=== PATIENT | female | born 1955 | race Caucasian/White ===

== ENCOUNTER 2018-03-07 17:19 | Emergency (ER) | payer BC ==
[2018-03-07 18:27] VITALS: BP 110/54
--- NOTE | 2018-03-07 19:03 | ED ---
GI/ HPI - HPI Summary HPI Summary: 63-year-old male presents with abdominal pain for the past 2 days. She states the pain is intermittent. He is located suprapubic and left lower quadrant. She has history c difficle 2 years ago. She does not currently on any antibiotics. She presents constipation. She does MiraLAX today and had a bowel movement for some relief afterwards. She describes the pain is spasm. She was occasional nausea but denies any vomiting. She denies any previous surgeries. She has been able to keep food down. She denies any pain with urination. No flank pain. No blood in her stool urine or abnormal vaginal discharge. She denies any history of diverticulitis. - History of Current Complaint Hx Last Menstrual Period: menopuasal Pain Intensity: 4 <Love Casiano - Last Filed: 03/07/18 19:53> <Chente Espinal - Last Filed: 03/07/18 21:02> - History of Current Complaint Chief Complaint: UCAbdominalPain Time Seen by Provider: 03/07/18 18:54 Stated Complaint: ABD PAIN - Allergy/Home Medications Allergies/Adverse Reactions: Allergies Allergy/AdvReac Type Severity Reaction Status Date / Time atorvastatin [From Lipitor] Allergy Leg Cramps Verified 03/07/18 18:28 codeine Allergy Nausea Verified 03/07/18 18:27 metronidazole [From Flagyl] Allergy GI Upset Verified 03/07/18 18:28 Home Medications: Home Medications Aspirin 81 mg PO 03/07/18 [History] Diazepam TAB(*) [Valium TAB(*)] PRN 03/07/18 [History] Ibuprofen [Motrin Ib] 400 mg PO 03/07/18 [History] Levothyroxine TAB* [Synthroid 75 MCG TAB*] 03/07/18 [History] Metoprolol Tartrate 03/07/18 [History] PMH/Surg Hx/FS Hx/Imm Hx Endocrine/Hematology History: Reports: Hx Thyroid Disease - controlled with meds - Cancer History Hx Chemotherapy: No Hx Radiation Therapy: No - Surgical History Surgery Procedure, Year, and Place: 1997-partial hysterectomy Infectious Disease History: Yes Infectious Disease History: Denies: Traveled Outside the [place] in Last 30 Days - Family History Known Family History: Positive: Hypertension - Social History Alcohol Use: Occasionally Substance Use Type: Reports: None Smoking Status (MU): Light Every Day Tobacco Smoker <Love Casiano - Last Filed: 03/07/18 19:53> Review of Systems Negative: Fever Negative: Chest Pain Negative: Shortness Of Breath Positive: Abdominal Pain, Nausea, Other - constipation. Negative: Vomiting, Diarrhea All Other Systems Reviewed And Are Negative: Yes <Love Casiano - Last Filed: 03/07/18 19:53> Physical Exam Triage Information Reviewed: Yes Vital Signs On Initial Exam: Initial Vitals Temp Pulse Resp BP Pulse Ox 98.7 F 59 16 110/54 100 03/07/18 18:19 03/07/18 18:19 03/07/18 18:19 03/07/18 18:19 03/07/18 18:19 Vital Signs Reviewed: Yes Appearance: Positive: Well-Appearing Skin: Positive: Warm, Dry Head/Face: Positive: Normal Head/Face Inspection Eyes: Positive: Normal, EOMI, ANNY, Conjunctiva Clear ENT: Positive: Normal ENT inspection, Pharynx normal, TMs normal Respiratory/Lung Sounds: Positive: Clear to Auscultation, Breath Sounds Present Cardiovascular: Positive: Normal, RRR Abdomen Description: Positive: Nontender, Soft Bowel Sounds: Positive: Present Musculoskeletal: Positive: Normal Neurological: Positive: Normal Psychiatric: Positive: Normal <Love Casiano - Last Filed: 03/07/18 19:53> Vital Signs On Initial Exam: Initial Vitals Temp Pulse Resp BP Pulse Ox 98.7 F 59 16 110/54 100 03/07/18 18:19 03/07/18 18:19 03/07/18 18:19 03/07/18 18:19 03/07/18 18:19 <Chente Espinal L - Last Filed: 03/07/18 21:02> Diagnostics - Vital Signs Vital Signs Temp Pulse Resp BP Pulse Ox 03/07/18 18:19 98.7 F 59 16 110/54 100 - Radiology abd Xray Interpretation: No Acute Changes Radiology Interpretation Completed By: Radiologist <StephenieLove - Last Filed: 03/07/18 19:53> - Vital Signs Vital Signs Temp Pulse Resp BP Pulse Ox 03/07/18 18:19 98.7 F 59 16 110/54 100 <Chente Espinal - Last Filed: 03/07/18 21:02> GIGU Course/Dx - Course Course Of Treatment: 63-year-old male presents with abdominal pain for the past 2 days. She states the pain is intermittent. He is located suprapubic and left lower quadrant. She has history c difficle 2 years ago. She does not currently on any antibiotics. She presents constipation. She does MiraLAX today and had a bowel movement for some relief afterwards. She describes the pain is spasm. She was occasional nausea but denies any vomiting. She denies any previous surgeries. She has been able to keep food down. She denies any pain with urination. No flank pain. No blood in her stool urine or abnormal vaginal discharge. She denies any history of diverticulitis. on exam nontender abdomen. explained that likely due to constipation but can no due any further testing than xray and urine. xray shows stool. patient did not want to give urine and did not want to wait for official read xray. patient has colace at home. told if anything changes to follow up in ED. patient understand and agrees with plan. - Diagnoses Differential Diagnoses - Female: Constipation, Diverticulitis, Urinary Tract Infection <Love Casiano - Last Filed: 03/07/18 19:53> <Chente Espinal - Last Filed: 03/07/18 21:02> - Diagnoses Provider Diagnoses: Abdominal pain Discharge - Sign-Out/Discharge Documenting (check all that apply): Discharge/Admit/Transfer - Billing Disposition and Condition Condition: GOOD Disposition: Home <Love Casiano - Last Filed: 03/07/18 19:53> - Billing Disposition and Condition Condition: GOOD Disposition: Home <Chente Espinal - Last Filed: 03/07/18 21:02> - Discharge Plan Condition: Good Disposition: HOME Patient Education Materials: Abdominal Pain (ED) Forms: *Gen. Provider Communication Referrals: Lucila Hastings MD [Primary Care Provider] - Additional Instructions: Take Tylenol every 6 hours as needed for pain increase fiber Take miralax daily add on colace daily Follow up with primary within 5 days Go to ED if pain becomes severe or continues to persist or any new or worsening symptoms Per institutional requirements, I have reviewed the chart, however, I was not consulted specifically or made aware of this patient by the above midlevel provider. I did not personally evaluate, interact with , or disposition this patient.
--- NOTE | 2018-03-07 19:45 | RAD ---
INDICATION: Lower abdominal pain and constipation. COMPARISON: Comparison is made with a prior CT of the abdomen and pelvis from January 05, 2011. TECHNIQUE: Supine and upright views of the abdomen were obtained. FINDINGS: The small bowel and colon appear nondistended. No free intraperitoneal air is seen. There is a vyto-tb-frlhrvtk of retained stool. There is a calcific density which projects over the pelvis on the right side which appears unchanged from prior CT study most consistent with a phlebolith. IMPRESSION: NO EVIDENCE FOR OBSTRUCTION.
== END 2018-03-07 19:20 | disposition home or self-care (01) ==
LOC: UCEAST 17:19
DX: R10.32 Left lower quadrant pain (principal); K59.00 Constipation, unspecified; R11.0 Nausea; E07.9 Disorder of thyroid, unspecified; F17.290 Nicotine dependence, other tobacco product, uncomplicated; Z88.5 Allergy status to narcotic agent; Z88.8 Allergy status to other drugs, medicaments and biological substances; Z88.1 Allergy status to other antibiotic agents; Z79.82 Long term (current) use of aspirin
CPT/HCPCS: 74019; 99211; G0463

== ENCOUNTER 2018-04-28 09:35 | Emergency (ER) | payer SELFPAY ==
--- OUTSIDE RECORDS SUMMARY | 2018-04-28 09:40 | XMS REPORT ---
:1955 External Reference #:[id number] Author Organization [facility] Address [address] [place] [address] Phone [phone] Care Team Providers Name Role Phone Lucila Hastings M.D. Primary Care Physician Unavailable Payers Type Date Identification Numbers Payment Provider Subscriber Commercial Policy Number: [id number] [facility] Rosita Mahmood PayID: [id number] [address] [address] [place] [address] Problems Date Description Provider Status Onset: Hypothyroidism Active Onset: Hypercholesterolemia Active Onset: 01/03/2016 Vitreous degeneration Shanon Castro O.D. Active Onset: 01/03/2016 Nuclear senile cataract Shanon Castro O.D. Active Family History Date Family Member(s) Problem(s) Comments Father No Current Problems Mother No Current Problems Social History Type Date Description Comments Marital Status Single Occupation [employer] Status Full-Time Employment ETOH Use Occasionally consumes alcohol Smoking Patient is a current smoker, smokes every day 2-3 cig Recreational Drug Use Denies Drug Use Daily Caffeine Consumes on average 1 cup of regular coffee per day Allergies, Adverse Reactions, Alerts Date Description Reaction Status Severity Comments 01/03/2016 Flagyl active 01/03/2016 Ceclor active 01/03/2016 Lipitor active Medications Medication Date Status Form Strength Qnty SIG Indications Ordering Provider Systane Active Solution 0.4-0.3% three Shanon Thrasher Preservative 016 times a Matthew, Free day O.D. Diazepam Active Tablets 2mg Unknown 000 Metoprolol Active Tablets 25mg Unknown Tartrate 000 Levothyroxine Active Tablets 88mcg Unknown Sodium [address] 81mg Unknown 000 Vancomycin HCL Hx Capsules 125mg four Unknown 000 - times a day 015 Results Description No Information Procedures Date CPT Code Description Status 02/28/2017 82867 Determination Of Refractive State Completed 02/28/2017 57458 Est Patient Comprehensive Exam Completed 05/15/2016 78902 Est Patient Comprehensive Exam Completed 01/03/2016 90427 New Patient Comprehensive Exam Completed 12/18/2012 30982 Determination Of Refractive State Completed 12/18/2012 09871 Est Patient Comprehensive Exam Completed 11/03/2011 10765 Est Patient Comprehensive Exam Completed 07/14/2009 68218 Est Patient Comprehensive Exam Completed 01/24/2008 21696 Determination Of Refractive State Completed 01/24/2008 20573 Est Patient Comprehensive Exam Completed 04/04/2007 07719 Determination Of Refractive State Completed 04/04/2007 64441 Est Patient Comprehensive Exam Completed 09/30/2004 62951 Determination Of Refractive State Completed 09/30/2004 28445 Est Patient Comprehensive Exam Completed Encounters Type Date Location Provider CPT E/M Dx Office Visit 02/28/2016 Bruce Whatley MD, Shanon Castro, [id number] [id number] 3:10p Rachael H25.13 Plan of Care 04/08/2018 - Shanon Castro O.D.H25.13 Age-related nuclear cataract, bilateralComments:Smoking can increase the risk of developing or worsening any eye related disease, as well as affect your overall health. If you are a smoker , we strongly recommend that you quit.If you are not a smoker, we strongly recommend that you do not start. You have been diagnosed with cataracts. If you are happy with your vision as it is now, then we will see you at your next scheduled appointment. If you feel like your vision is getting worse before your scheduled appointment, please call Isabella Anderson at [phone].Follow up:1 Year Follow Up You can expect to have your eyes dilated at your next visit. If Dr. Castro orders any additional testing, it may require extra time. We recommend that you bring sunglasses, as dilation drops often make you light sensitive until they wear off. We always recommend you bring someone to drive you home if you are uncomfortable driving with your eyes dilated. If you have any questions before your next visit, feel free to call our office at .[phone] Vitreous degeneration, bilateralComments: You have a Posterior Vitreous Detachment. If you have any changes in your floaters or flashing lights, please contact this office.
[2018-04-28 09:48] VITALS: BP 138/80
--- NOTE | 2018-04-28 11:00 | UC ---
Head Injury HPI - HPI Summary HPI Summary: States this morning she was walking with a baseball cap and could not see a beam , which she walked into and got a big goose egg bruise on forehead. She denies any dizziness, visual disturbances, imbalance or nausea/vomiting. She states she did not fall after colliding with beam and did not loose consciousness. She c/o band-like headache along temples and is taking ASA for paroxysmal Afib . She also took ibuprofen yesterday. - History Of Current Complaint Chief Complaint: UCHeadInjury Stated Complaint: HEAD INJURY Time Seen by Provider: 04/28/18 10:41 Hx Obtained From: Patient Hx Last Menstrual Period: menopuasal ?: No Onset/Duration: Sudden Onset, Lasting Hours Severity Currently: Moderate Severity Initially: Moderate Pain Intensity: 4 Character: Dull Aggravating Factor(s): Nothing Alleviating Factor(s): Nothing Associated Signs And Symptoms: Positive: Other - headache Anticoagulant Therapy: ASA Head: 1 - hematoma approximately 4.5 inches x2.5inches - Risk Factors SDH Risk Factor: Anticoagulent Use - Allergies/Home Medications Allergies/Adverse Reactions: Allergies Allergy/AdvReac Type Severity Reaction Status Date / Time atorvastatin [From Lipitor] Allergy Leg Cramps Verified 04/28/18 09:48 codeine Allergy Nausea Verified 04/28/18 09:48 metronidazole [From Flagyl] Allergy GI Upset Verified 04/28/18 09:48 PMH/Surg Hx/FS Hx/Imm Hx Previously Healthy: Yes Endocrine History: Hypothyroidism Cardiovascular History: Atrial Fibrillation - Surgical History Surgical History: Yes Surgery Procedure, Year, and Place: 1997-partial hysterectomy - Family History Known Family History: Positive: Hypertension - Social History Alcohol Use: Occasionally Substance Use Type: None Smoking Status (MU): Light Every Day Tobacco Smoker Household Exposure Type: Cigarettes Review of Systems Constitutional: Negative Neurological: Headache All Other Systems Reviewed And Are Negative: Yes Physical Exam Triage Information Reviewed: Yes Appearance: Well-Appearing, No Pain Distress, Well-Nourished Vital Signs: Initial Vital Signs Temp 97.5 F 04/28/18 09:45 Pulse 63 04/28/18 09:45 Resp 16 04/28/18 09:45 BP 138/80 04/28/18 09:45 Pulse Ox 100 04/28/18 09:45 Vital Signs Reviewed: Yes Eyes: Positive: Conjunctiva Clear ENT: Positive: Hearing grossly normal, Pharynx normal, TMs normal Neck: Positive: Supple, Nontender, No Lymphadenopathy Respiratory: Positive: Chest non-tender, Lungs clear, Normal breath sounds, No respiratory distress Cardiovascular: Positive: RRR, No Murmur, Pulses Normal, Brisk Capillary Refill Abdomen Description: Positive: Nontender, No Organomegaly, Soft Neurological: Positive: Alert, Muscle Tone Normal, Other: - CN II to XII grossly intact, sensation and strength symmetrical and intact, normal gait Skin Exam: Normal Head Injury Course/Dx - Course Course Of Treatment: patient with head trauma on ASA and ibuprofen who has headache after trauma, instructed to go [place] [facility] [place] r/o SDH. Patient declined ambulance service and states she wants to drive herself there. - Differential Dx/Diagnosis Provider Diagnoses: Head trauma Discharge - Sign-Out/Discharge Documenting (check all that apply): Patient Departure, Post-Discharge Follow Up - Discharge Plan Condition: Fair Disposition: HOME Patient Education Materials: Concussion (ED) Referrals: Lucila Hastings MD [Primary Care Provider] - Additional Instructions: please go to [facility] [place] - Billing Disposition and Condition Condition: FAIR Disposition: Home
== END 2018-04-28 11:12 | disposition home or self-care (01) ==
LOC: UCEAST 09:35
DX: S09.90XA Unspecified injury of head, initial encounter (principal); S00.83XA Contusion of other part of head, initial encounter; W22.09XA Striking against other stationary object, initial encounter; Y93.01 Activity, walking, marching and hiking; Y92.9 Unspecified place or not applicable; I48.91 Unspecified atrial fibrillation; Z79.82 Long term (current) use of aspirin; Z88.1 Allergy status to other antibiotic agents; Z88.5 Allergy status to narcotic agent; Z88.8 Allergy status to other drugs, medicaments and biological substances; Z82.49 Family history of ischemic heart disease and other diseases of the circulatory system; F17.210 Nicotine dependence, cigarettes, uncomplicated
CPT/HCPCS: 99212; G0463

== ENCOUNTER 2018-04-28 12:47 | Emergency (ER) | payer SELFPAY ==
--- NOTE | 2018-04-28 13:20 | RAD ---
Indication: Head injury. ET of the brain performed without IV contrast. Ventricular structures are midline. No midline shift is noted. The extra-axial spaces are unremarkable. There is no evidence of intracranial mass or hemorrhage. No other high or low density lesions are identified. Mastoid air cells and paranasal sinuses are otherwise unremarkable. IMPRESSION: No intracranial mass or hemorrhage is noted.
[2018-04-28 14:06] VITALS: BP 133/67
--- NOTE | 2018-04-28 14:09 | ED ---
Head Injury - HPI Summary HPI Summary: Patient is a 63-year-old female presenting to the ED from with request for CT scan due to hitting a beam with her head this morning. Endorses a headache behind the eyes and temples. Currently on aspirin for A. fib. Denies any visual changes, nausea, vomiting, photophobia. Denies any LOC. She states she is otherwise feeling well. She is concerned is due to her anticoagulation medication. - History Of Current Complaint Chief Complaint: EDHeadInjury Stated Complaint: HEAD INJURY Time Seen by Provider: 04/28/18 13:04 Hx Obtained From: Patient Hx Last Menstrual Period: menopuasal Mechanism Of Injury: Blunt Trauma Onset/Duration: Started Hours Ago Onset of Pain: Hours Severity Currently: Mild Severity Initially: Mild Pain Intensity: 4 Pain Scale Used: 0-10 Numeric Character: Throbbing Alleviating Factor(s): Rest, Ice Associated Signs And Symptoms: Negative Anticoagulant Therapy: ASA - Risk Factors SDH Risk Factor: Negative - Allergies/Home Medications Allergies/Adverse Reactions: Allergies Allergy/AdvReac Type Severity Reaction Status Date / Time atorvastatin [From Lipitor] Allergy Leg Cramps Verified 04/28/18 09:48 codeine Allergy Nausea Verified 04/28/18 09:48 metronidazole [From Flagyl] Allergy GI Upset Verified 04/28/18 09:48 PMH/Surg Hx/FS Hx/Imm Hx Previously Healthy: Yes Endocrine/Hematology History: Reports: Hx Thyroid Disease - controlled with meds - Cancer History Hx Chemotherapy: No Hx Radiation Therapy: No - Surgical History Surgery Procedure, Year, and Place: 1997-partial hysterectomy - Immunization History Hx Pertussis Vaccination: No Immunizations Up to Date: Unable to Obtain/Confirm Infectious Disease History: No Infectious Disease History: Denies: Traveled Outside the [place] in Last 30 Days - Family History Known Family History: Positive: Hypertension - Social History Occupation: Unemployed Lives: With Family Alcohol Use: Occasionally Hx Substance Use: No Substance Use Type: Reports: None Hx Tobacco Use: Yes Smoking Status (MU): Current Every Day Smoker Review of Systems Constitutional: Negative Negative: Fever, Chills, Fatigue, Skin Diaphoresis Negative: Palpitations, Chest Pain Negative: Shortness Of Breath, Cough Genitourinary: Negative Positive: no symptoms reported, see HPI Positive: Bruising - frontal head Neurological: Negative All Other Systems Reviewed And Are Negative: Yes Physical Exam Triage Information Reviewed: Yes Vital Signs On Initial Exam: Initial Vitals Temp Pulse Resp BP Pulse Ox 97.9 F 72 16 145/68 99 04/28/18 12:49 04/28/18 12:49 04/28/18 12:49 04/28/18 12:49 04/28/18 12:49 Vital Signs Reviewed: Yes Appearance: Positive: Well-Appearing, Well-Nourished Skin: Positive: Warm, Skin Color Reflects Adequate Perfusion, Other - forehead bruising/swelling Eyes: Positive: EOMI, ANNY, Conjunctiva Clear Neck: Positive: Supple, No Lymphadenopathy Respiratory/Lung Sounds: Positive: Clear to Auscultation Cardiovascular: Positive: RRR Musculoskeletal: Positive: Normal, Strength/ROM Intact Neurological: Positive: Sensory/Motor Intact, Speech Normal Psychiatric: Positive: Normal AVPU Assessment: Alert Diagnostics - Vital Signs Vital Signs Temp Pulse Resp BP Pulse Ox 04/28/18 14:05 98.7 F 51 16 133/67 98 04/28/18 12:49 97.9 F 72 16 145/68 99 - Laboratory Lab Statement: Any lab studies that have been ordered have been reviewed, and results considered in the medical decision making process. Head Injury Course/Dx Course Of Treatment: Patient is evaluated for head injury. CT obtained and is negative for any acute changes. She is discharged with head injury. - Diagnoses Differential Diagnosis/HQI/PQRI: Concussion With LOC, Concussion Without LOC, Contusion Provider Diagnoses: Head injury Discharge - Sign-Out/Discharge Documenting (check all that apply): Patient Departure - Discharge Plan Condition: Stable Disposition: HOME Patient Education Materials: Head Injury (ED) Referrals: Lucila Hastings MD [Primary Care Provider] - Additional Instructions: If you develop any worsening symptoms - return to the ED - Billing Disposition and Condition Condition: STABLE Disposition: Home
== END 2018-04-28 14:05 | disposition home or self-care (01) ==
LOC: ED 12:47
DX: S09.90XA Unspecified injury of head, initial encounter (principal); W22.8XXA Striking against or struck by other objects, initial encounter; Y92.9 Unspecified place or not applicable; Y99.9 Unspecified external cause status; I48.91 Unspecified atrial fibrillation; F17.200 Nicotine dependence, unspecified, uncomplicated; Z79.82 Long term (current) use of aspirin; Z88.5 Allergy status to narcotic agent; Z88.8 Allergy status to other drugs, medicaments and biological substances; Z88.3 Allergy status to other anti-infective agents
CPT/HCPCS: 70450; 99281

== ENCOUNTER 2019-04-06 13:59 | Emergency (ER) | payer BC ==
--- OUTSIDE RECORDS SUMMARY | 2019-04-06 14:10 | XMS REPORT | Continuity of Care Document ---
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 /min Body Temperature 98.0 F Height 65 inches 5'5" Weight 153.00 lb BMI (Body Mass Index) 25.5 kg/m2 03/10/2008 10:14am BP Systolic 100 mmHg BP Diastolic 60 mmHg Body Temperature 98.2 F Height 65 inches 5'5" Weight 153.00 lb BMI (Body Mass Index) 25.5 kg/m2 03/04/2008 2:12pm BP Systolic 106 mmHg BP Diastolic 64 mmHg Heart Rate 76 /min Body Temperature 101.1 F Height 65 inches 5'5" Weight 153.00 lb BMI (Body Mass Index) 25.5 kg/m2 02/15/2008 12:42pm BP Systolic 124 mmHg BP Diastolic 64 mmHg Heart Rate 66 /min Body Temperature 98.1 F Height 65 inches 5'5" Weight 154.00 lb BMI (Body Mass Index) 25.6 kg/m2 11/22/2007 4:27pm BP Systolic 112 mmHg BP Diastolic 70 mmHg Heart Rate 72 /min Height 65 inches 5'5" Weight 159.00 lb BMI (Body Mass Index) 26.5 kg/m2 07/24/2007 10:35am BP Systolic 124 mmHg BP Diastolic 72 mmHg Heart Rate 72 /min Body Temperature 97.0 F Height 65 inches 5'5" Weight 158.00 lb BMI (Body Mass Index) 26.3 kg/m2 04/12/2007 12:55pm BP Systolic 130 mmHg BP Diastolic 70 mmHg Heart Rate 72 /min Respiratory Rate 16 /min Height 65 inches 5'5" Weight 154.00 lb BMI (Body Mass Index) 25.6 kg/m2 03/25/2007 1:29pm BP Systolic 118 mmHg BP Diastolic 64 mmHg Heart Rate 76 /min Respiratory Rate 13 /min Height 65 inches 5'5" 06/26/2006 1:12pm BP Systolic 110 mmHg BP Diastolic 70 mmHg Body Temperature 99.3 F Height 65 inches 5'5" Weight 153.00 lb BMI (Body Mass Index) 25.5 kg/m2 03/30/2006 10:08am BP Systolic 124 mmHg BP Diastolic 70 mmHg Body Temperature 100.0 F Height 65 inches 5'5" Weight 152.00 lb BMI (Body Mass Index) 25.3 kg/m2 03/22/2006 5:14pm BP Systolic 122 mmHg BP Diastolic 70 mmHg Heart Rate 72 /min Height 65 inches 5'5" Weight 152.00 lb BMI (Body Mass Index) 25.3 kg/m2 02/18/2006 10:53am BP Systolic 122 mmHg BP Diastolic 80 mmHg Body Temperature 97.0 F Respiratory Rate 20 /min Height 65 inches 5'5" 01/12/2006 9:39am BP Systolic 116 mmHg BP Diastolic 62 mmHg Heart Rate 66 /min Body Temperature 99.0 F Height 65 inches 5'5" Weight 151.00 lb BMI (Body Mass Index) 25.1 kg/m2 10/05/2005 2:07pm BP Systolic 114 mmHg BP Diastolic 70 mmHg Heart Rate 80 /min Body Temperature 98.7 F Height 65 inches 5'5" Weight 157.00 lb BMI (Body Mass Index) 26.1 kg/m2 08/15/2005 9:10am BP Systolic 120 mmHg BP Diastolic 80 mmHg Heart Rate 72 /min Height 65 inches 5'5" Weight 150.00 lb BMI (Body Mass Index) 25.0 kg/m2 12/12/2004 3:57pm BP Systolic 116 mmHg BP Diastolic 60 mmHg Heart Rate 60 /min Height 65 inches 5'5" Weight 148.00 lb BMI (Body Mass Index) 24.6 kg/m2 11/02/2004 9:31am BP Systolic 110 mmHg BP Diastolic 70 mmHg Heart Rate 60 /min Body Temperature 98.9 F Height 66 inches 5'6" Weight 152.00 lb BMI (Body Mass Index) 24.5 kg/m2 08/08/2004 4:07pm BP Systolic 110 mmHg BP Diastolic 80 mmHg Height 66 inches 5'6" Weight 150.00 lb BMI (Body Mass Index) 24.2 kg/m2 01/20/2004 3:12pm BP Systolic 116 mmHg BP Diastolic 70 mmHg Heart Rate 72 /min Height 66 inches 5'6" Weight 148.00 lb BMI (Body Mass Index) 23.9 kg/m2 08/18/2003 9:10am BP Systolic 110 mmHg BP Diastolic 68 mmHg Heart Rate 72 /min Body Temperature 99.8 F Height 66 inches 5'6" Weight 148.00 lb BMI (Body Mass Index) 23.9 kg/m2 11/04/2002 8:04am BP Systolic 120 mmHg BP Diastolic 60 mmHg Heart Rate 72 /min Height 66 inches 5'6" Weight 149.00 lb BMI (Body Mass Index) 24.0 kg/m2 10/09/2002 6:08pm BP Systolic 130 mmHg BP Diastolic 74 mmHg Heart Rate 68 /min Body Temperature 97.8 F Height 66 inches 5'6" Weight 146.00 lb BMI (Body Mass Index) 23.6 kg/m2 08/20/2002 4:33pm BP Systolic 117 mmHg BP Diastolic 68 mmHg Heart Rate 84 /min Height 66 inches 5'6" Weight 150.00 lb BMI (Body Mass Index) 24.2 kg/m2 04/12/2000 8:48pm Body Temperature 97.8 F Height 66 inches 5'6" Weight 144.00 lb BMI (Body Mass Index) 23.2 kg/m2 04/03/2000 6:27pm BP Systolic 114 mmHg BP Diastolic 68 mmHg Height 66 inches 5'6" Weight 143.25 lb BMI (Body Mass Index) 23.1 kg/m2 Right Visual Acuity Distance 20/30 Colors:Green/black Left Visual Acuity Distance 20/20 Corrected 04/18/1999 10:00am BP Systolic 114 mmHg BP Diastolic 70 mmHg Height 66 inches 5'6" Weight 143.00 lb 02/16/1999 11:00am BP Systolic 110 mmHg BP Diastolic 50 mmHg Height 66 inches 5'6" Weight 146.00 lb 12/19/1997 11:13am BP Systolic 122 mmHg BP Diastolic 64 mmHg Height 66 inches 5'6" Weight 135.50 lb 07/15/1997 12:00am Body Temperature 98.9 F Results Test Date Facility Test Result H/L Range Note Laboratory test finding 08/06/2018 [facility] [place] Thyroxine 11.00 ?g/dL N 6.09- 12.23 1 T3 Free 3.40 pg/mL N 2.5-3.9 2 Vitamin D Total 25(Oh) 25.6 ng/mL N 20-50 3 TSH (Thyroid Stim Horm) 0.90 mcIU/mL N 0.34-5.60 4 CBC No Diff 08/06/2018 [facility] [place] White Blood Count 9.3 10^3/uL N 3.5-10.8 Red Blood Count 4.48 10^6/uL N 4.00-5.40 Hemoglobin 14.8 g/dL N 12.0-16.0 Hematocrit 44 % N 35-47 Mean Corpuscular Volume 97 fL N 80-97 Mean Corpuscular Hemoglobin 33 pg High 27-31 Mean Corpuscular HGB Conc 34 g/dL N 31-36 Red Cell Distribution Width 13 % N 10.5-15 Platelet Count 197 10^3/uL N 150-450 Mean Platelet Volume 10.7 fL High 7.4-10.4 Lipid Profile (Trig/Chol/HDL) 08/06/2018 [facility] [place] Triglycerides 178 mg/dL 5 Cholesterol 261 mg/dL 6 HDL Cholesterol 53.1 mg/dL 7 LDL Cholesterol 172 mg/dL 8 Comp Metabolic Panel 08/06/2018 [facility] [place] Sodium 138 mmol/L N 135-145 Potassium 4.4 mmol/L N 3.5-5.0 Chloride 106 mmol/L N 101-111 Co2 Carbon Dioxide 25 mmol/L N 22-32 Anion Gap 7 mmol/L N 2-11 Glucose 96 mg/dL N 70-100 Blood Urea Nitrogen 19 mg/dL N 6-24 Creatinine 0.90 mg/dL N 0.51-0.95 BUN/Creatinine Ratio 21.1 High 8-20 Calcium 9.6 mg/dL N 8.6-10.3 Total Protein 6.7 g/dL N 6.4-8.9 Albumin 4.5 g/dL N 3.2-5.2 Globulin 2.2 g/dL N 2-4 Albumin/Globulin Ratio 2.0 N 1-3 Total Bilirubin 0.50 mg/dL N 0.2-1.0 Alkaline Phosphatase 92 U/L N 34-104 Alt 15 U/L N 7-52 Ast 16 U/L N 13-39 Egfr Non- 63.2 >60 Egfr 76.5 >60 9 Laboratory test finding 12/18/2017 [facility]) TSH 1.93 mIU/L 0.50-6.00 Free T4 1.18 ng/dL 0.75-1.54 Laboratory test 11/05/2017 [facility]) TSH 8.78 mIU/L High 0.50- 6.00 finding Free T4 0.74 ng/dL Low 0.75-1.54 Comprehensive Metabolic 04/19/2017 [facility]) Sodium 140 mEq/L 134-149 Prof Potassium 5.0 mEq/L 3.6-5.5 Chloride 100 mEq/L 94-112 Carbon Dioxide 26 mEq/L 21-32 Glucose 107 mg/dL High 70-105 BUN 16 mg/dL 6-26 Creatinine 0.8 mg/dL 0.6-1.4 BUN/Creat Ratio 20.0 CALC 8.0-36.0 Calcium 9.6 mg/dL 8.6-10.2 Total Protein 7.1 g/dL 6.4-8.3 Albumin 4.8 g/dL 3.8-5.5 Globulin 2.3 g/dL 2.0-4.8 A/G Ratio 2.1 CALC 0.6-2.3 Alk. Phosphatase 72 U/L 30-110 Alt (SGPT) 17 U/L 7-35 Ast (Sgot) 16 U/L 5-34 Total Bilirubin 0.4 mg/dL 0.2-1.3 GFR Non- >60 ml/min/1.73m^ >=60 GFR >60 ml/min/1.73m^ >=60 CBC Auto Diff 09/14/2016 [facility] [place] White Blood Count 9.3 10^3/uL N 3.5-10.8 Red Blood Count 4.91 10^6/uL N 4.0-5.4 Hemoglobin 16.3 g/dL High 12.0-16.0 Hematocrit 48 % High 35-47 Mean Corpuscular Volume 97 fL N 80-97 Mean Corpuscular Hemoglobin 33 pg High 27-31 Mean Corpuscular HGB Conc 34 g/dL N 31-36 Red Cell Distribution Width 13 % N 10.5-15 Platelet Count 215 10^3/uL N 150-450 Mean Platelet Volume 11 um3 High 7.4-10.4 Abs Neutrophils 5.6 10^3/uL N 1.5-7.7 Abs Lymphocytes 2.6 10^3/uL N 1.0-4.8 Abs Monocytes 0.7 10^3/uL N 0-0.8 Abs Eosinophils 0.2 10^3/uL N 0-0.6 Abs Basophils 0.1 10^3/uL N 0-0.2 Abs Nucleated RBC 0 10^3/uL N Granulocyte % 60.9 % N 38-83 Lymphocyte % 27.9 % N 25-47 Monocyte % 8.1 % N 1-9 Eosinophil % 1.8 % N 0-6 Basophil % 1.3 % N 0-2 Nucleated Red Blood Cells % 0 N Comp Metabolic Panel 09/14/2016 [facility] Sodium 135 mmol/L N 133-145 Potassium 4.7 mmol/L N 3.5-5.0 Chloride 103 mmol/L N 101-111 Co2 Carbon Dioxide 24 mmol/L N 22-32 Anion Gap 8 mmol/L N 2-11 Glucose 94 mg/dL N 70-100 Blood Urea Nitrogen 18 mg/dL N 6-24 Creatinine 0.93 mg/dL N 0.51-0.95 BUN/Creatinine Ratio 19.4 N 8-20 Calcium 9.6 mg/dL N 8.6-10.3 Total Protein 7.2 g/dL N 6.4-8.9 Albumin 4.5 g/dL N 3.2-5.2 Globulin 2.7 g/dL N 2-4 Albumin/Globulin Ratio 1.7 N 1-3 Total Bilirubin 0.50 mg/dL N 0.2-1.0 Alkaline Phosphatase 75 U/L N 34-104 Alt 15 U/L N 7-52 Ast 17 U/L N 13-39 Egfr Non- 61.3 N >60 Egfr 78.8 N >60 10 Lipid Profile (Trig/Chol/HDL) 09/14/2016 [facility] [place] Triglycerides 202 mg/dL N 11 Cholesterol 290 mg/dL N 12 HDL Cholesterol 48.7 mg/dL N 13 LDL Cholesterol 201 mg/dL N 14 Laboratory test finding 09/14/2016 [facility] [place] TSH (Thyroid Stim 2.91 mcIU/mL N 0.34-5.60 Horm) Free T4 (Free Thyroxine) 1.02 ng/dL N 0.61-1.12 Ferritin 130.3 ng/mL N 11-307 Vitamin D Total 25(Oh) 31.2 ng/mL N 30-50 Complete Blood Count 03/17/2016 [facility]) WBC 6.3 x10^3/UL 3.6 -9.6 RBC 4.28 x10^6/UL 3.90-5.70 HGB 14.4 g/dL 12.1-17.2 HCT 42 % 36-50 MCV 99.0 fL High 82.2-97.4 15 MCH 33.6 pg High 27.6-33.3 16 MCHC 34.0 g/dL 33.0-35.5 RDW 13.1 % 11.6-13.7 PLT 261 x10^3/UL 150-400 MPV 8.6 fL 7.4-10.4 Gran # 3.6 x10^3/UL 1.5-7.2 Lymph# 2.5 x10^3/UL 0.7-4.9 [place]# 0.2 x10^3/UL 0.1-0.9 Gran % 55.3 % 42.2-75.2 Lymph % 40.4 % 20.5-51.1 [place]% 4.3 % 1.7-9.3 Laboratory test 02/25/2016 [facility] [place] Stool Occult SEE RESULT BELOW 17 finding Blood Laboratory test 02/25/2016 [facility] [place] Lactic Acid 1.0 mmol/L N 0.5-2.0 18 finding CBC Auto Diff 02/25/2016 [facility] [place] White Blood Count 7.6 10^3/uL N 3.5-10.8 Red Blood Count 4.43 10^6/uL N 4.0-5.4 Hemoglobin 14.6 g/dL N 12.0-16.0 Hematocrit 43 % N 35-47 Mean Corpuscular Volume 97 fL N 80-97 Mean Corpuscular Hemoglobin 33 pg High 27-31 Mean Corpuscular HGB Conc 34 g/dL N 31-36 Red Cell Distribution Width 12 % N 10.5-15 Platelet Count 144 10^3/uL Low 150-450 Mean Platelet Volume 11 um3 High 7.4-10.4 Abs Neutrophils 6.1 10^3/uL N 1.5-7.7 Abs Lymphocytes 0.6 10^3/uL Low 1.0-4.8 Abs Monocytes 0.9 10^3/uL High 0-0.8 Abs Eosinophils 0 10^3/uL N 0-0.6 Abs Basophils 0 10^3/uL N 0-0.2 Abs Nucleated RBC 0 10^3/uL N Granulocyte % 80.2 % N 38-83 Lymphocyte % 7.6 % Low 25-47 Monocyte % 11.7 % High 1-9 Eosinophil % 0.2 % N 0-6 Basophil % 0.3 % N 0-2 Nucleated Red Blood Cells % 0 N Comp Metabolic Panel 02/25/2016 [facility] Sodium 128 mmol/L Low 133-145 Potassium 3.6 mmol/L N 3.5-5.0 Chloride 99 mmol/L Low 101-111 Co2 Carbon Dioxide 19 mmol/L Low 22-32 Anion Gap 10 mmol/L N 2-11 Glucose 138 mg/dL High 70-100 Blood Urea Nitrogen 15 mg/dL N 6-24 Creatinine 0.83 mg/dL N 0.51-0.95 BUN/Creatinine Ratio 18.1 N 8-20 Calcium 8.8 mg/dL N 8.6-10.3 Total Protein 6.6 g/dL N 6.4-8.9 Albumin 3.7 g/dL N 3.2-5.2 Globulin 2.9 g/dL N 2-4 Albumin/Globulin Ratio 1.3 N 1-3 Total Bilirubin 0.50 mg/dL N 0.2-1.0 Alkaline Phosphatase 55 U/L N 34-104 Alt 19 U/L N 7-52 Ast 21 U/L N 13-39 Egfr Non- 69.9 N >60 Egfr 89.9 N >60 19 Laboratory test finding 02/25/2016 [facility] Lipase 11 U/L N 11.0-82.0 C Reactive Protein 144.74 mg/L High < 5.00 20 Urinalysis Profile 02/25/2016 [facility] [place] Urine Color Yellow N Urine Appearance Cloudy N Urine Specific [place] 1.023 N 1.010-1.030 Urine pH 5.0 N 5-9 Urine Urobilinogen Negative N Negative Urine Ketones Trace Abnormal Negative Urine Protein 1+(30 mg/dL) Abnormal Negative Urine Leukocytes Negative N Negative Urine Blood 1+ Abnormal Negative Urine Nitrite Negative N Negative Urine Bilirubin Negative N Negative Urine Glucose Negative N Negative Urine White Blood Cell Trace(0-5/hpf) N Absent Urine Red Blood Cell 1+(3-5/hpf) Abnormal Absent Urine Bacteria Absent N Absent Urine Squamous Epithelial Cell Present Abnormal Absent Comprehensive Metabolic 12/02/2015 [facility]) Sodium 137 mEq/L 134-149 Prof Potassium 4.3 mEq/L 3.6-5.5 Chloride 103 mEq/L 94-112 Carbon Dioxide 29 mEq/L 21-32 Glucose 107 mg/dL High 70-105 21 BUN 15 mg/dL 6-26 Creatinine 0.8 mg/dL 0.6-1.4 BUN/Creat Ratio 18.8 CALC 8.0-36.0 Calcium 10.2 mg/dL 8.6-10.2 Total Protein 7.5 g/dL 6.4-8.3 Albumin 4.7 g/dL 3.8-5.5 Globulin 2.8 g/dL 2.0-4.8 A/G Ratio 1.7 CALC 0.6-2.3 Alk. Phosphatase 79 U/L 30-110 Alt (SGPT) 18 U/L 7-35 Ast (Sgot) 17 U/L 5-34 Total Bilirubin 0.3 mg/dL 0.2-1.3 GFR Non- >60 ml/min/1.73m^ >=60 GFR >60 ml/min/1.73m^ >=60 Laboratory test finding 12/02/2015 [facility]) TSH 1.84 mIU/L 0.50-6.00 Free T4 1.25 ng/dL 0.75-1.54 Complete Blood Count 12/02/2015 [facility]) WBC 7.8 x10^3/UL 3.6 -9.6 RBC 4.62 x10^6/UL 3.90-5.70 HGB 15.5 g/dL 12.1-17.2 HCT 46 % 36-50 MCV 100.0 fL High 82.2-97.4 22 MCH 33.6 pg High 27.6-33.3 MCHC 33.6 g/dL 33.0-35.5 RDW 12.5 % 11.6-13.7 PLT 231 x10^3/UL 150-400 MPV 9.0 fL 7.4-10.4 Gran # 4.8 x10^3/UL 1.5-7.2 Lymph# 2.8 x10^3/UL 0.7-4.9 [place]# 0.2 x10^3/UL 0.1-0.9 Gran % 59.5 % 42.2-75.2 Lymph % 36.8 % 20.5-51.1 [place]% 3.7 % 1.7-9.3 Lipid Panel-[facility] 03/25/2015 [facility] [place] Triglycerides 105 mg/dL N 23, 24 Cholesterol 239 mg/dL N 25 HDL Cholesterol 41.7 mg/dL N 26 LDL Cholesterol 176 mg/dL N 27 Laboratory test 02/18/2015 [facility] [place] TSH (Thyroid Stim 1.52 ?IU/mL N 0.34-5.60 28, 29 finding Horm) Comp Metabolic-ALL 02/18/2015 [facility] [place] Sodium 137 mmol/L N 133-145 Lab [facility] Potassium 4.2 mmol/L N 3.5-5.0 Chloride 104 mmol/L N 101-111 Co2 Carbon Dioxide 28 mmol/L N 22-32 Anion Gap 5 mmol/L N 2-11 Glucose 94 mg/dL N 70-100 Blood Urea Nitrogen 17 mg/dL N 6-24 Creatinine 0.91 mg/dL N 0.51-0.95 BUN/Creatinine Ratio 18.7 N 8-20 Calcium 9.4 mg/dL N 8.6-10.3 Total Protein 6.4 g/dL N 6.4-8.9 Albumin 4.4 g/dL N 3.2-5.2 Globulin 2.0 g/dL N 2-4 Albumin/Globulin Ratio 2.2 N 1-3 Total Bilirubin 0.50 mg/dL N 0.2-1.0 Alkaline Phosphatase 70 U/L N 34-104 Alt 15 U/L N 7-52 Ast 18 U/L N 13-39 Egfr Non- 63.1 N >60 Egfr 81.1 N >60 30 Liver Function Panel 02/18/2015 [facility] [place] Direct Bilirubin 0.10 mg/dL N 0.03- 0.18 Indirect Bilirubin 0.4 mg/dL N 0.3-1.0 Laboratory test finding 02/18/2015 [facility] [place] Free T4 1.08 ng/mL N 0.61-1.12 31 Laboratory test finding 02/21/2014 [facility] [place] Potassium Redraw 4.2 mmol/L 3.7- 5.6 Ast Redraw 19 U/L 13-39 Laboratory test 02/20/2014 [facility] [place] TSH (Thyroid 3.85 IU/mL 0.34-5.60 32 finding Stimulating Horm) Comp Metabolic-ALL Lab 02/20/2014 [facility] [place] Sodium 135 mmol/L 133-145 [facility] Potassium TNP mmol/L 3.7-5.6 33 Chloride 106 mmol/L 101-111 Co2 Carbon Dioxide 22 mmol/L 22-32 Anion Gap TNP mmol/L 2-11 Glucose 97 mg/dL 70-100 Blood Urea Nitrogen 21 mg/dL 6-24 Creatinine 1.00 mg/dL High 0.51-0.95 BUN/Creatinine Ratio 21.0 High 8-20 Calcium 9.2 mg/dL 8.6-10.3 Total Protein 6.9 g/dL 6.4-8.9 Albumin 4.4 g/dL 3.2-5.2 Globulin 2.5 g/dL 2-4 Albumin/Globulin Ratio 1.8 1-3 Total Bilirubin 0.30 mg/dL 0.2-1.0 Alkaline Phosphatase 87 U/L 34-104 Alt 17 U/L 7-52 Ast TNP U/L 13-39 34 Egfr Non- 56.7 >60 Egfr 73.0 >60 35 Lipid Panel-[facility] 02/20/2014 [facility] [place] Triglycerides 282 mg/dL 36 Cholesterol 248 mg/dL 37 HDL Cholesterol 44.6 mg/dL 38 LDL Cholesterol 147 mg/dL 39 Ua - Non Micro (a) 01/19/2014 [facility] Appearance CLEAR (607)- - Color YELLOW Glucose NEG Bilirubin NEG Ketones NEG SP Grav 1.025 Blood NEG PH 6.0 Protein NEG Urobil 0.2 Nitrite NEG Leukocytes ([facility] [place]/[facility]) NEG Laboratory test 01/15/2013 [facility]) TSH 0.62 mIU/L 0.50-6.00 finding Lipid Profile 01/15/2013 [facility]) Cholesterol 268 mg/dL High 120-200 HDL 45 mg/dL 30-85 Triglycerides 164 mg/dL 30-200 HDL Risk Factor 6.0 CALC High 0.0-4.4 LDL (Calculated) 191 CALC High 0-129 VLDL (Calculated) 33 mg/dL 0-50 Comprehensive Metabolic 01/15/2013 [facility]) Albumin 4.8 g/dL 3.8-5.5 Prof Alk. Phos. 80 U/L 30-110 Alt (SGPT) 19 U/L 7-35 Ast (Sgot) 21 U/L 5-34 BUN 16 mg/dL 6-26 Calcium 9.4 mg/dL 8.6-10.2 Chloride 102 mEq/L 94-112 Creatinine 1.1 mg/dL 0.6-1.4 Carbon Dioxide 21 mEq/L 21-32 Glucose 99 mg/dL 70-105 Sodium 138 mEq/L 134-149 Total Bilirubin 0.6 mg/dL 0.2-1.3 Total Protein 7.0 g/dL 6.3-8.1 Potassium 4.7 mEq/L 3.6-5.5 Globulin 2.2 g/dL 2.0-4.8 A/G Ratio 2.1 Calc 0.6-2.3 BUN/Creat Ratio 14.5 Calc 8.0-36.0 Ua - Non Micro ([facility]) 01/15/2013 [facility] Appearance clear (607)- - Color yellow Glucose - Bilirubin - Ketones - SP Grav 1.020 Blood - PH 7.5 Protein - Urobil 0.2 Nitrite - Leukocytes ([facility]) - Lipid Profile (Trig/Chol/HDL) 06/17/2012 [facility] [place] Triglyceride 162 mg/dL 40- 200 Cholesterol 264 mg/dL High Less Than 200 40 High Density Lipoprotein 43 mg/dL 40-60 41 Cholesterol/HDL Ratio 6.14 AVERAGE High 1-4.44 Low Density Lipoprotein 189 mg/dL High Less Than 100 42 Laboratory test finding 06/17/2012 [facility] [place] TSH 3.15 MIU/ML 0.34-5.60 Laboratory test finding 12/05/2011 [facility] [place] TSH 1.06 MIU/ML 0.34-5.60 Lipid Profile (Trig/Chol/HDL) 10/11/2011 [facility] [place] Triglyceride 88 mg/dL 40- 200 Cholesterol 223 mg/dL High Less Than 200 43 High Density Lipoprotein 50 mg/dL 40-60 44 Cholesterol/HDL Ratio 4.46 AVERAGE High 1-4.44 Low Density Lipoprotein 155 mg/dL High Less Than 100 45 Comp Metabolic Panel 10/11/2011 [facility] [place] Sodium 135 mmol/L 135-145 Potassium 4.5 mmol/L 3.5-5.0 Chloride 101 mmol/L 101-111 Co2 (Carbon Dioxide) 28.0 mmol/L 22-32 Anion Gap 6.0 mmol/L 2-11 46 Glucose 93 mg/dL 70-100 BUN 14 mg/dL 6-24 Creatinine 1.0 mg/dL 0.50-1.40 One Over Creatinine 1.00 BUN/Creatinine Ratio 14.0 8-20 Calcium 9.5 mg/dL 8.1-9.9 Total Protein 6.6 GM/DL 6.2-8.1 Albumin 4.3 GM/DL 3.6-5.4 Globulin 2.3 GM/DL 2-4 Albumin/Globulin Ratio 1.9 1-3 Bilirubin Total 0.6 mg/dL 0.4-1.5 47 Alkaline Phosphatase 85 U/L 30-110 Alt (SGPT) 15 U/L 14-54 Ast (Sgot) 19 U/L 12-42 eGFR Non- 57.4 > 60 eGFR 73.8 > 60 48 Laboratory test finding 10/11/2011 [facility] [place] TSH 7.31 MIU/ML High 0.34-5.60 CBC Auto Diff 10/11/2011 [facility] [place] White Blood Count 7.1 CUMM 4.8-10.8 Red Cell Count 4.29 CUMM 4.2-5.4 Hemoglobin 14.7 g/dL 12.0-16.0 Hematocrit 43 % 35-47 Mean Corpuscular Volume 100 um3 High 79-97 Mean Corpuscular Hemoglob 34 pg High 27-31 Mean Corpuscular HGB Cone 34 g/dL 32-36 Redcell Distribution WDTH 12 % 10.5-15 Platelet Count 194 CUMM 150-450 Mean Platelet Volume 10.7 um3 High 7.4-10.4 Gran % 57.1 % 38-83 Lymph % 30.1 % 25-47 Mononuclear % 8.6 % 1-9 Eosinophil % 3.8 % 0-6 Basophil % 0.4 % 0-2 Abs Lymphs 2.1 1.0-4.8 Abs Mononuclear 0.6 0-0.8 Absolute Neutrophil Count 4.1 1.5-7.7 Abs Eosinophils 0.3 0-0.6 Abs Basophils 0 0-0.2 CBC Electronic ([facility]) 04/04/2011 [facility] WBC 5.8 3.6-9.6 (607)- - RBC 4.65 3.90-5.70 Hemoglobin ([facility]/CTX) 15.8 g/dL 12.1 - 17.2 Hematocrit ([facility]/CTX) 45.8 % 36.1 - 50.3 Platelets 215 10^3/ul 150-400 Lymph% 28.9 20.5-51.1 Mixed% 9.9 Neutrophils % 61.2 Mean Corpuscular Vol 98.5 High 82.2-97.4 Mean Corpuscular Hemoglobin 34.0 High 27.6-33.3 Mean Corpuscular Hemo Concen 34.5 32.0-36.0 RDW 12.3 11.6-13.7 Mean Platelet Volume 13.5 High 6.5-11.0 Comprehensive Metabolic 04/04/2011 [place]([facility]) Albumin 5.0 g/dL 3.8-5.5 Prof Alk. Phos. 79 U/L 30-110 Alt (SGPT) 14 U/L 7-35 Ast (Sgot) 16 U/L 5-34 BUN 12 mg/dL 6-26 Calcium 10.5 mg/dL High 8.6-10.2 49 Chloride 104 mEq/L 94-112 Creatinine 1.0 mg/dL 0.6-1.4 Carbon Dioxide 24 mEq/L 21-32 Glucose 109 mg/dL High 70-105 50 Sodium 138 mEq/L 134-149 Total Bilirubin 0.5 mg/dL 0.2-1.3 Total Protein 7.4 g/dL 6.3-8.1 Potassium 5.0 mEq/L 3.6-5.5 Globulin 2.4 g/dL 2.0-4.8 A/G Ratio 2.1 Calc 0.6-2.2 BUN/Creat Ratio 12.4 Calc 8.0-36.0 Urinalysis 01/05/2011 [facility] [place] Ua Color YELLOW Yellow Appearance-Urine CLEAR Clear Specific [place]-Ur 1.020 1.010-1.030 Esterase-Urine NEGATIVE Negative Nitrite NEGATIVE Negative [id number] NEGATIVE Negative Protein-Urine NEGATIVE Negative PH-Urine 7.0 5-9 Blood-Urine NEGATIVE Negative Ketones-Urine NEGATIVE Negative Bilirubin-Ur NEGATIVE Negative Glucose-Urine NEGATIVE Negative CBC No Diff 01/05/2011 [facility] [place] White Blood Count 13.7 CUMM High 4.8-10.8 Red Cell Count 4.33 CUMM 4.2-5.4 Hemoglobin 14.9 g/dL 12.0-16.0 Hematocrit 43 % 35-47 Mean Corpuscular Volume 99 um3 High 79-97 Mean Corpuscular Hemoglob 34 pg High 27-31 Mean Corpuscular HGB Cone 35 g/dL 32-36 Redcell Distribution WDTH 12 % 10.5-15 Platelet Count 208 CUMM 150-450 Mean Platelet Volume 10.4 um3 7.4-10.4 Basic Metabolic Panel 01/05/2011 [facility] [place] Sodium 136 mmol/L 135-145 Potassium 4.0 mmol/L 3.5-5.0 Chloride 104 mmol/L 101-111 Co2 (Carbon Dioxide) 27.0 mmol/L 22-32 Anion Gap 5.0 mmol/L 2-11 51 Glucose 120 mg/dL High 70-100 BUN 7 mg/dL 6-24 Creatinine 0.90 mg/dL 0.50-1.40 One Over Creatinine 1.10 BUN/Creatinine Ratio 7.8 Low 8-20 Calcium 9.0 mg/dL 8.1-9.9 eGFR Non- 65.0 > 60 eGFR 83.6 > 60 52 Liver Function Panel 01/05/2011 [facility] [place] Total Protein 6.8 GM/DL 6.2-8.1 Albumin 4.2 GM/DL 3.6-5.4 Globulin 2.6 GM/DL 2-4 Albumin/Globulin Ratio 1.6 1-3 Bilirubin Total 1.0 mg/dL 0.4-1.5 53 Bilirubin Direct 0.1 mg/dL 0.1-0.5 Indirect Bilirubin 0.9 mg/dL 0.3-1.0 54 Alkaline Phosphatase 73 U/L 30-110 Alt (SGPT) 14 U/L 14-54 Ast (Sgot) 19 U/L 12-42 Laboratory test finding 01/05/2011 [facility] [place] Lipase 25 U/L 22-51 Troponin-I 0 NG/ML 0-0.06 55 Manual Differential 01/05/2011 [facility] [place] Polysegmented Neutrophil 89 % High 38- 83 Lymphocyte 6 % Low 25-47 Monocyte 4 % 0-13 Eosinophil 1 % 0-6 Absolute Neutrophil Count 12.1 RBC Morphology NORMAL Fungus Culture 12/28/2010 [facility] Culture No fungus noted [address] [place], [place] [id number] [phone] Fungal Smear NO FUNGAL ELEMEN <SEE NOTE> 56 Laboratory test 12/21/2010 [facility] Quickstrep NEGATIVE Negative finding ([phone])- - CBC With 11/08/2010 [facility] [place] White Blood Count 6.5 CUMM 4.8-10.8 Electronic Diff Red Cell Count 4.57 CUMM 4.2-5.4 Hemoglobin 15.3 g/dL 12.0-16.0 Hematocrit 45 % 35-47 Mean Corpuscular Volume 99 um3 High 79-97 Mean Corpuscular Hemoglob 34 pg High 27-31 Mean Corpuscular HGB Cone 34 g/dL 32-36 Redcell Distribution WDTH 12 % 10.5-15 Platelet Count 189 CUMM 150-450 Mean Platelet Volume 10.7 um3 High 7.4-10.4 Gran % 56.3 % 38-83 Lymph % 31.5 % 25-47 Mononuclear % 8.0 % 1-9 Eosinophil % 3.8 % 0-6 Basophil % 0.4 % 0-2 Abs Lymphs 2.0 1.0-4.8 Abs Mononuclear 0.5 0-0.8 Absolute Neutrophil Count 3.6 1.5-7.7 Abs Eosinophils 0.2 0-0.6 Abs Basophils 0 0-0.2 Comp Metabolic Panel 11/08/2010 [facility] [place] Sodium 134 mmol/L Low 135-145 Potassium 4.0 mmol/L 3.5-5.0 Chloride 101 mmol/L 101-111 Co2 (Carbon Dioxide) 26.0 mmol/L 22-32 Anion Gap 7.0 mmol/L 2-11 57 Glucose 96 mg/dL 70-100 BUN 10 mg/dL 6-24 Creatinine 0.90 mg/dL 0.50-1.40 One Over Creatinine 1.10 BUN/Creatinine Ratio 11.1 8-20 Calcium 9.3 mg/dL 8.1-9.9 Total Protein 6.4 GM/DL 6.2-8.1 Albumin 4.5 GM/DL 3.6-5.4 Globulin 1.9 GM/DL Low 2-4 Albumin/Globulin Ratio 2.4 1-3 Bilirubin Total 0.7 mg/dL 0.4-1.5 58 Alkaline Phosphatase 76 U/L 30-110 Alt (SGPT) 23 U/L 14-54 Ast (Sgot) 26 U/L 12-42 eGFR Non- 65.0 > 60 eGFR 83.6 > 60 59 Lipid Profile (Trig/Chol/HDL) 11/08/2010 [facility] [place] Triglyceride 186 mg/dL 40- 200 Cholesterol 226 mg/dL High Less Than 200 60 High Density Lipoprotein 44 mg/dL 40-60 61 Cholesterol/HDL Ratio 5.14 AVERAGE High 1-4.44 Low Density Lipoprotein 145 mg/dL High Less Than 100 62 Laboratory test finding 11/08/2010 [facility] [place] Thyroxine Free 0.93 NG/ML 0.61- 1.24 T3 Free 3.25 pg/mL 2.39-6.79 TSH 2.62 MIU/ML 0.34-5.60 CBC With Electronic Diff 02/23/2010 [facility] [place] White Blood Count 6.4 CUMM 4.8- 10.8 Red Cell Count 4.30 CUMM 4.2-5.4 Hemoglobin 14.9 g/dL 12.0-16.0 Hematocrit 43 % 35-47 Mean Corpuscular Volume 100 um3 High 79-97 Mean Corpuscular Hemoglob 35 pg High 27-31 Mean Corpuscular HGB Cone 35 g/dL 32-36 Redcell Distribution WDTH 12 % 10.5-15 Platelet Count 178 CUMM 150-450 Mean Platelet Volume 9.2 um3 7.4-10.4 Gran % 72.4 % 38-83 Lymph % 17.3 % Low 25-47 Mononuclear % 7.9 % 1-9 Eosinophil % 2.1 % 0-6 Basophil % 0.3 % 0-2 Abs Lymphs 1.1 1.0-4.8 Abs Mononuclear 0.5 0-0.8 Absolute Neutrophil Count 4.6 1.5-7.7 Abs Eosinophils 0.1 0-0.6 Abs Basophils 0 0-0.2 63 Comp Metabolic Panel 02/23/2010 [facility] Sodium 137 mmol/L 135-145 Potassium 3.7 mmol/L 3.5-5.0 Chloride 104 mmol/L 101-111 Co2 (Carbon Dioxide) 25.0 mmol/L 22-32 Anion Gap 8.0 mmol/L 2-11 64 Glucose 113 mg/dL High 70-100 65 BUN 6 mg/dL 6-24 Creatinine 0.90 mg/dL 0.50-1.40 One Over Creatinine 1.10 BUN/Creatinine Ratio 6.7 Low 8-20 Calcium 9.4 mg/dL 8.1-9.9 66 Total Protein 6.5 GM/DL 6.2-8.1 Albumin 4.4 GM/DL 3.6-5.4 Globulin 2.1 GM/DL 2-4 Albumin/Globulin Ratio 2.1 1-3 Bilirubin Total 0.6 mg/dL 0.4-1.5 67 Alkaline Phosphatase 64 U/L 30-110 Alt (SGPT) 19 U/L 14-54 Ast (Sgot) 23 U/L 12-42 eGFR Non- 69.1 > 60 eGFR 83.6 > 60 68 Urinalysis W/Microscopic 02/23/2010 [facility] Ua Color STRAW Yellow Appearance-Urine CLEAR Clear Specific [place]-Ur 1.006 Low 1.010-1.030 Esterase-Urine NEGATIVE Negative Nitrite NEGATIVE Negative Molnnwimlfhx-Az-CCM NEGATIVE Negative Protein-Urine NEGATIVE Negative PH-Urine 5.0 5-9 Blood-Urine TRACE Abnormal Negative Ketones-Urine NEGATIVE Negative Bilirubin-Ur NEGATIVE Negative Glucose-Urine NEGATIVE Negative RBC-Urine 0-2 0-2 Epith Cells-Ur RARE None Laboratory test finding 02/23/2010 [facility] Lipase 22 U/L 22-51 Urine Culture & 01/25/2010 [facility] Urine Culture NG 69 Sensitivi Sensitivi HCG () Urine 01/25/2010 [facility] Specific [place] 1.007 Low 1.010- 1.030 Stat Urine NEGATIVE Negative 70 Urinalysis 01/25/2010 [facility] Ua Color YELLOW Yellow Appearance-Urine CLEAR Clear Specific [place]-Ur 1.007 Low 1.010-1.030 Esterase-Urine NEGATIVE Negative Nitrite NEGATIVE Negative Takbslheenko-Pp-YRY NEGATIVE Negative Protein-Urine NEGATIVE Negative PH-Urine 6.5 5-9 Blood-Urine NEGATIVE Negative Ketones-Urine NEGATIVE Negative Bilirubin-Ur NEGATIVE Negative Glucose-Urine NEGATIVE Negative Laboratory test finding 01/25/2010 [facility] Lipase 28 U/L 22-51 Amylase Stat 01/25/2010 [facility] Amylase 51 U/L 30-125 Comp Stat 01/25/2010 [facility] Sodium 137 mmol/L 135-145 Potassium 4.0 mmol/L 3.5-5.0 Chloride 104 mmol/L 101-111 Co2 (Carbon Dioxide) 25.0 mmol/L 22-32 Anion Gap 8.0 mmol/L 2-11 71 Glucose 98 mg/dL 70-100 72 BUN 16 mg/dL 6-24 Creatinine 0.90 mg/dL 0.50-1.40 One Over Creatinine 1.10 BUN/Creatinine Ratio 17.8 8-20 Calcium 9.5 mg/dL 8.1-9.9 73 Total Protein 7.0 GM/DL 6.2-8.1 Albumin 4.3 GM/DL 3.6-5.4 Globulin 2.7 GM/DL 2-4 Albumin/Globulin Ratio 1.6 1-3 Bilirubin Total 0.6 mg/dL 0.4-1.5 74 Alkaline Phosphatase 78 U/L 30-110 Alt (SGPT) 20 U/L 14-54 Ast (Sgot) 23 U/L 12-42 eGFR Non- 69.3 > 60 eGFR 83.9 > 60 75 CBC With Electronic Diff Stat 01/25/2010 [facility] White Blood Count 6.6 CUMM 4.8-10.8 Red Cell Count 4.19 CUMM Low 4.2-5.4 Hemoglobin 14.3 g/dL 12.0-16.0 Hematocrit 41 % 35-47 Mean Corpuscular Volume 99 um3 High 79-97 Mean Corpuscular Hemoglob 34 pg High 27-31 Mean Corpuscular HGB Cone 35 g/dL 32-36 Redcell Distribution WDTH 12 % 10.5-15 Platelet Count 200 CUMM 150-450 Mean Platelet Volume 9.4 um3 7.4-10.4 Gran % 72.5 % 38-83 Lymph % 19.3 % Low 25-47 Mononuclear % 6.0 % 1-9 Eosinophil % 1.4 % 0-6 Basophil % 0.8 % 0-2 Abs Lymphs 1.3 1.0-4.8 Abs Mononuclear 0.4 0-0.8 Absolute Neutrophil Count 4.8 1.5-7.7 Abs Eosinophils 0.1 0-0.6 Abs Basophils 0.1 0-0.2 76 GC/Chlamydia Dna Probe 01/25/2010 [facility] GC By Aptima NEGATIVE Negative 77 CHL By Aptima NEGATIVE Negative 78 Wet Prep 01/25/2010 [facility] Wet Prep NONE SEEN 79 Lipid Profile 09/14/2009 [facility]) Cholesterol 220 mg/dL High 120-200 HDL 57 mg/dL 30-85 Triglycerides 245 mg/dL High 30-200 HDL Risk Factor 3.8 CALC Low 4.2-7.0 LDL (Calculated) 114 CALC 0-129 VLDL (Calculated) 49 mg/dL 0-50 Hepatic 09/14/2009 [facility](a) Albumin 4.6 g/dL 3.8-5.5 Alk. Phos. 77 U/L 30-110 Alt (SGPT) 15 U/L 7-35 Ast (Sgot) 18 U/L 5-34 Total Bilirubin 0.5 mg/dL 0.2-1.3 Total Protein 7.0 g/dL 6.3-8.1 Direct Bilirubin 0.2 mg/dL 0.0-0.6 Globulin 2.4 g/dL 2.0-4.8 A/G Ratio 1.9 Calc 0.6-2.2 Indirect Bilirubin 0.26 0.10-1.00 Laboratory test finding 09/14/2009 Junito Odonnell([facility]) TSH 2.03 mIU/L 0.50-6.00 Free T4 1.27 ng/dL 0.75-1.54 Free T3 2.70 pg/mL 2.00-4.90 Laboratory test finding 02/17/2009 Junito Odonnell([facility]) TSH 1.53 mIU/L 0.50-6.00 Free T4 1.20 ng/dL 0.75-1.54 Lipid Profile 02/17/2009 Junito Belle([facility]) Cholesterol 245 mg/dL High 120-200 HDL 56 mg/dL 30-85 Triglycerides 364 mg/dL High 30-200 HDL Risk Factor 4.4 CALC 4.2-7.0 LDL (Calculated) 117 CALC 0-129 80 VLDL (Calculated) 73 mg/dL High 0-50 Hepatic 02/17/2009 [facility]) Albumin 4.5 g/dL 3.8-5.5 Alk. Phos. 90 U/L 30-110 Alt (SGPT) 15 U/L 7-35 Ast (Sgot) 19 U/L 5-34 Total Bilirubin 0.3 mg/dL 0.2-1.3 Total Protein 7.3 g/dL 6.3-8.1 Direct Bilirubin 0.1 mg/dL 0.0-0.6 Globulin 2.8 g/dL 2.0-4.8 A/G Ratio 1.6 Calc 0.6-2.2 Indirect Bilirubin 0.15 0.10-1.00 Laboratory test 02/17/2009 Junito Odonnell([facility]) LDL (Direct) 156 mg/dL High 0-130 finding Lipid Profile 06/06/2008 [facility] Cholesterol, 306 mg/dL High 120-200 81 , 82 [address] [place] [address] [phone] HDL Cholesterol 48 mg/dL 40-60 LDL Cholesterol, Calc. 205 mg/dL AB <130 83 Triglycerides 264 mg/dL AB 84 LDL/HDL Cholesterol 4.3 AB 85 Chol/HDL Cholesterol 6.4 AB 86 Laboratory test 06/06/2008 [facility] Free T-3 3.1 pg/mL 1.8-4.2 finding [address] [place] [address] [phone] T-4 Free 1.5 ng/dL 0.8-1.8 TSH (Thyrotropin) 1.900 uIU/ml 0.350-5.500 Laboratory test 11/05/2007 [facility] LIPID;LIVER;TSH See Image finding Report Liver Function 11/05/2007 [facility] Albumin/Globul 1.7 1-3 87 Panel in Ratio Albumin 4.0 GM/DL 3.6-5.4 Alkaline Phosphatase 80 U/L 30-110 Alt (SGPT) 21 U/L 14-54 Ast (Sgot) 21 U/L 12-42 Bilirubin Direct < 0.1 mg/dL Low 0.1-0.5 Globulin 2.3 GM/DL 2-4 Bilirubin Total 0.6 mg/dL 0.4-1.5 Total Protein 6.3 GM/DL 6.2-8.1 Lipid Profile 11/05/2007 [facility] Cholesterol/HDL Ratio 4.95 AVERAGE High 1- 4.44 (Trig/Chol/HDL) Cholesterol 183 mg/dL Less Than 200 88 Triglyceride 208 mg/dL High 40-200 High Density Lipoprotein 37 mg/dL Low 40-60 89 Low Density Lipoprotein 104 mg/dL High Less Than 100 90 Laboratory test finding 11/05/2007 [facility] TSH 3.22 MIU/ML 0.34-5.60 Laboratory test finding 06/29/2007 [facility] TSH 5.06 MIU/ML 0.34-5.60 Lipid Profile 06/29/2007 [facility] Cholesterol/HDL 7.66 AVERAGE High 1-4.44 (Trig/Chol/HDL) Ratio Cholesterol 314 mg/dL High Less Than 200 91 Triglyceride 346 mg/dL High 40-200 High Density Lipoprotein 41 mg/dL 40-60 Low Density Lipoprotein 204 mg/dL High Less Than 100 92 Comp Metabolic Panel 06/29/2007 [facility] One Over Creatinine 1.11 Anion Gap 9.0 mmol/L 2-11 93 Albumin/Globulin Ratio 1.5 1-3 Albumin 4.0 GM/DL 3.6-5.4 Alkaline Phosphatase 81 U/L 30-110 Alt (SGPT) 20 U/L 14-54 Ast (Sgot) 22 U/L 12-42 BUN 11 mg/dL 6-24 Calcium 9.1 mg/dL 8.7-10.2 Chloride 106 mmol/L 101-111 Co2 (Carbon Dioxide) 24.0 mmol/L 22-32 Globulin 2.7 GM/DL 2-4 Glucose 96 mg/dL 70-105 Potassium 4.4 mmol/L 3.5-5.0 Sodium 139 mmol/L 135-145 Bilirubin Total 0.8 mg/dL 0.4-1.5 Total Protein 6.7 GM/DL 6.2-8.1 BUN/Creatinine Ratio 12.2 8-20 Creatinine 0.9 mg/dL 0.5-1.4 Laboratory test finding 06/29/2007 [facility] T3 Free 2.43 pg/mL 2.39-6.79 Free Thyroxine 0.58 NG/ML Low 0.61-1.24 94 CBC With Electronic Diff 06/29/2007 [facility] White Blood Count 7.2 CUMM 4.8- 10.8 Abs Basophils 0 0-0.2 Abs Eosinophils 0.3 0-0.6 Absolute Neutrophil Count 4.1 1.5-7.7 Abs Lymphs 2.2 1.0-4.8 Abs Mononuclear 0.6 0-0.8 Basophil % 0.5 % 0-2 Hematocrit 43 % 35-47 Hemoglobin 14.9 g/dL 12.0-16.0 Eosinophil % 4.3 % 0-6 Gran % 56.8 % 38-83 Lymph % 30.5 % 20-45 Mean Corpuscular HGB Cone 35 g/dL 32-36 Mean Corpuscular Hemoglob 34 pg High 27-31 Mean Corpuscular Volume 99 um3 High 79-97 Mean Platelet Volume 9.9 um3 7.4-10.4 Mononuclear % 7.9 % 1-9 Platelet Count 230 CUMM 150-450 Red Cell Count 4.38 CUMM 4.2-5.4 Redcell Distribution WDTH 12 % 10.5-15 Ua - Non Micro ([facility]) 04/12/2007 [facility] Appearance CLEAR (607)- - Color LT YELLOW Glucose NEG Bilirubin NEG Ketones NEG SP Grav >1.030 Blood NEG PH 5.0 Protein NEG Urobil 0.2 Nitrite NEG Leukocytes ([facility]) NEG Laboratory test 04/06/2006 [facility] CMP;LIPID;T4;TSH See Image finding Report Laboratory test 07/11/2005 [facility] CMP;LIPID;FT4;TSH; See Image finding Report Laboratory test 07/03/2005 [facility] TSH <pending> 0.34-5.60 finding ([facility]) Free T4 ([facility]) <pending> ng/dL 0.58-1.64 Ua - Non Micro ([facility]) 12/12/2004 [facility] Appearance CLEAR (607)- - Color YELLOW Glucose NEGATIVE Bilirubin NEGATIVE Ketones TRACE SP Grav 1.020 Blood NEGATIVE LMP: N/A PH 5.5 Protein NEGATIVE Urobil 0.2 Nitrite NEGATIVE Leukocytes NEGATIVE Lipid Profile ([facility]) 10/05/2004 [facility] Triglyceride 126 mg/dL 40-200 Cholesterol (a/[facility]) 194 mg/dL <200 HDL-Chol 50 40-60 Cholesterol / HDL Ratio 3.88 AVG 1-4.44 LDL, Calculated ([facility]) 119 High <100 Laboratory test 10/05/2004 [facility] Thyroxine,Total(T4) (F/C/CTX) 8.8 g/dL 5-12 finding TSH ([facility]) 3.05 0.34-5.60 T3 Total ([facility]) 1.13 0.5-1.7 Liver/Lipid Profile ([facility]) 07/02/2004 [facility] Total Protein 6.9 GM/DL 6.2- 8.1 Albumin ([facility]) 4.2 3.6-5.4 Globulin 2.7 2-4 A/G Ratio (A/G Ratio) 1.6 1-3 Total Bilirubin 0.6 mg/dL 0.4-1.5 Bilirubin, Direct <0.1 mg/dL Low 0.1-0.5 Bilirubin, Indirect UNABLE TO CALCULATE mg/dL Low 0.1-0.75 Triglyceride 155 mg/dL 40-200 Cholesterol ([facility]) 250 mg/dL High <200 HDL-Chol 57 40-60 Cholesterol / HDL Ratio 4.39 AVG 1-4.44 LDL, Calculated ([facility]) 162 High <100 Alkaline Phosphatase (F/C/CTX) 82 U/L 30-110 Alt (SGPT) ([facility]) 20 14-54 Ast (Sgot) ([facility]) 21 12-42 Laboratory test 07/02/2004 [facility] TSH ([facility]) 2.91 0.34-5.60 finding Liver Function 11/19/2003 [facility] Total Protein 7.5 g/dL 6.3- 8.1 95 ([facility]) (607)- - Albumin ([facility]) 4.6 3.8-5.5 A/G Ratio ([facility]) 1.6 0.6-2.2 Globulin 2.9 2.0-4.8 Alkaline Phosphatase (F/C/CTX) 76 U/L 30-110 Alt (SGPT) 14 10-40 Ast (Sgot) ([facility]) 18 U/mL 5-34 Bilirubin, Total 0.7 mg/dL 0.2-1.3 Bilirubin, Direct 0.3 mg/dL 0-0.6 Bilirubin, Indirect 0.45 ml/dl 0.10-1.0 Lipid Profile ([facility]) 11/19/2003 [facility] Cholesterol 214 mg/dL High 120-200 (607)- - Triglyceride 145 mg/dL 30-200 HDL-Chol 37 30-85 LDL-Calculated ([facility]) 148 CALC High 0-129 VLDL 29 0-50 HDL Risk Factor ([facility]) 5.8 CALC 4.2-7.0 Free T4/TSH 11/19/2003 [facility] TSH 3.49 0.5-6.0 ([facility]) (607)- - ([facility]) uIU/ml Free T4 1.20 ng/dL 0.75-1.54 Liver Function (a) 09/08/2003 [facility] Total Protein 7.2 g/dL 6.3-8.1 (607)- - Albumin ([facility]) 4.9 3.8-5.5 A/G Ratio (a/[facility]) 2.1 0.6-2.2 Globulin 2.3 2.0-4.8 Alkaline Phosphatase (F/C/CTX) 76 U/L 30-110 Alt (SGPT) 14 10-40 Ast (Sgot) (a/[facility]) 18 U/mL 5-34 Bilirubin, Total 0.6 mg/dL 0.2-1.3 Bilirubin, Direct 0.2 mg/dL 0-0.6 Bilirubin, Indirect 0.36 ml/dl 0.10-1.0 Laboratory test 09/08/2003 [facility] TSH (a/[facility]) 3.18 uIU/ ml 0.5-6.0 finding (607)- - Basic Metabolic 11/10/2002 [facility] Glucose, Serum 98 mg/dL 70- 118 ([facility]) (607)- - ([facility]/CTX) BUN ([facility]) 17 mg/dL 7-26 Creatinine (a/[facility]/CTX) 0.9 mg/dL 0.6-1.4 BUN/Creatinin Ratio 18.9 8.0-36 Sodium 139 134-149 Potassium 4.3 3.6-5.5 Chloride 96 mEq/L 94-112 Co2 24 21-32 Calcium (a/[facility]) 9.4 mg/dL 8.6-10.0 Lipid Profile ([facility]) 11/10/2002 [facility] Cholesterol 307 mg/dL High 120-200 (607)- - Triglyceride 400 mg/dL High 30-200 HDL-Chol 47 30-85 LDL-Calculated ([facility]) INVALID CALC 0-129 VLDL 80 High 0-50 HDL Risk Factor ([facility]) 6.5 CALC 4.2-7.0 Laboratory test 11/10/2002 [facility] LDL, Direct 198 mg/dL High 0- 130 finding (607)- - Free T4/TSH 11/10/2002 [facility] TSH 4.71 uIU/ml 0.5-6.0 (a/[facility]) (607)- - Free T4 0.89 ng/dL 0.75-1.54 CBC Electronic ([facility]) 11/10/2002 [facility] WBC 7.2 3.6-9.6 (607)- - Lymphocytes 36.4 % 20.5 - 51.1 Monocytes 5.0 % 1.7-9.3 Granulocytes 58.6 % 42.2 - 75.2 Lymphocytes 2.6 10^3/uL 0.7 - 4.9 Monocytes 0.4 10^3/uL 0.1 - 0.9 Granulocytes 4.2 10^3/uL 1.5 - 7.2 RBC 4.66 3.90-5.70 Hemoglobin ([facility]/CTX) 15.7 g/dL 12.1 - 17.2 Hematocrit ([facility]/CTX) 46.1 % 36.1 - 50.3 Mean Corpuscular Vol 99.0 High 82.2-97.4 Mean Corpuscular Hemaglobin 33.6 High 27.6-33.3 Mean Corpuscular Hemo Concen 34.0 33.0-34.8 RDW 11.3 Low 11.6-13.7 Platelets 227 10^3/ul 150-400 Mean Platelet Volume 10.2 7.4-10.4 Laboratory test finding 11/10/2002 [facility] FSH 98.2 mIU/ml 96 [address] [place], [place] [address] [phone] LH 46.3 mIU/ml 97 Free T4/TSH Profile 08/20/2002 [facility] Free T4 0.76 ng/dL 0.7- 1.55 (a/CMC/C (607)- - TSH 7.51 High 0.4-4.2 Laboratory test 06/04/2002 Hospital (General) [facility] Test rubeola titer finding Ua - Non Micro ([facility] 04/03/2000 [facility] Appearance CLEAR YELLOW New) (607)- - Glucose - Bilirubin - Ketones - SP Grav 1.020 Blood - PH 6.0 Protein - Urobil 0.2 Nitrite - Leukocytes TRACE 1 FASTING 2 FASTING 3 FASTING 4 FASTING 5 Desirable: <150 Borderline High: 150-199 High: 200-499 Very High: >500 6 Desirable: <200 Borderline High: 200-239 High: >239 7 Low: <40 Desirable: 40-60 High: >60 8 Desirable: <100 Near Optimal: 100-129 Borderline High: 130-159 High: 160-189 Very High: >189 9 Because ethnic data is not always readily available, this report includes an eGFR for both -Americans and non- Americans. The National Kidney Disease Education Program (NKDEP) does not endorse the use of the MDRD equation for patients that are not between the ages of 18 and 70, are , have extremes of body size, muscle mass, or nutritional status, or are non- or non-. According to the National Kidney Foundation, irrespective of diagnosis, the stage of the disease is based on the level of kidney function: Stage Description GFR(mL/min/1.73 m(2)) 1 Kidney damage with normal or decreased GFR 90 2 Kidney damage with mild decrease in GFR 60-89 3 Moderate decrease in GFR 30-59 4 Severe decrease in GFR 15-29 5 Kidney failure <15 (or dialysis) 10 Because ethnic data is not always readily available, this report includes an eGFR for both -Americans and non- Americans. The National Kidney Disease Education Program (NKDEP) does not endorse the use of the MDRD equation for patients that are not between the ages of 18 and 70, are , have extremes of body size, muscle mass, or nutritional status, or are non- or non-. According to the National Kidney Foundation, irrespective of diagnosis, the stage of the disease is based on the level of kidney function: Stage Description GFR(mL/min/1.73 m(2)) 1 Kidney damage with normal or decreased GFR 90 2 Kidney damage with mild decrease in GFR 60-89 3 Moderate decrease in GFR 30-59 4 Severe decrease in GFR 15-29 5 Kidney failure <15 (or dialysis) 11 Desirable <150 Borderline high 150-199 High 200-499 Very High >500 12 Desirable <200 Borderline high 200-239 High >239 13 Low <40 Desirable: 40-60 High: >60 14 Desirable: <100 mg/dL Near Optimal: 100-129 mg/dL Borderline High: 130-159 mg/dL High: 160-189 mg/dL Very High: >189 mg/dL 15 consistent w/ previous results 16 consistent w/ previous results 17 SEE RESULT BELOW Name: SORIN RICHARDS : [address]: Gerber Lunsford MD Acct: [id number] Unit: [id number] AGE: 61 Location: ED Re02/25/16 SEX: F Status: DEP ER SPEC: [id number] ORLIN: 02/25/16-[address] [facility] [address]: Gerber Lunsford MD REQ: [id number] RECD: 02/25/16 STATUS: LACEY LEVY DR: Lucila Hastings MD _ SOURCE: STOOL SPDESC: ORDERED: Hemoccult, C. diff PCR, Stool Culture, Fecal Lactoferr, O P: Giar/ Crypt Procedure Result Reported Site Stool Culture Final 02/27/16- 1104 ML Result No enteric pathogens isolated Testing for Salmonella, Shigella, Aeromonas, Plesiomonas, Yersinia and Campylobacter are included in a Stool Culture. Vibrio spp not routinely tested for in a stool culture. If testing is desired, please request specifically when placing test order. Sensitivities not routinely performed on stool isolates, as antibiotics may prolong the carriage rate of bacteria. Please contact the microbiology lab if sensitivities are required. Stool Specimen Description Final 02/25/16- 0753 ML Stool Color Brown Stool Form Nonformed Stool Consistency Liquid Shiga Toxin 1 2 Final 02/28/16- 0506 ML Organism 1 Negative Shiga Toxin 1 2 Immunochromatographic Assay CONTINUED ON NEXT PAGE * ML=Testing performed at [facility] DEPARTMENT OF PATHOLOGY, [address] [place] [address] Gene Dyson M.D. Director [facility] # [id number] Patient: SORIN RICHARDS [id number] (Continued) Specimen: [id number] Collected: 02/25/16 Received: 02/25/16 (Continued) Procedure Result Reported Site Shiga Toxin 1 2 Final (continued) 02/28/16- 0506 C. difficile PCR Final 02/25/16- 0757 ML Organism 1 027 Presumptive NEGATIVE Organism 2 Toxigenic C.diff POSITIVE Fecal Lactoferrin (Stool WBC) Final 02/25/16- 1150 ML Fecal Lactoferrin Positive by Immunoassay TEST LIMITATIONS: Assay detects elevated levels of lactoferrin released from fecal leukocytes as a marker of intestinal inflammation. The test may not be appropriate in immunocompromised persons. Fecal samples from breast fed infants should not be used with this assay. Stool Occult Blood Final 02/25/16- 0754 ML Stool Occult Blood Positive O P: Giardia/Cryptospor Screen Final 02/25/16- 1123 ML Organism 1 Neg Cryptosporidium/Giardia Giardia and cryptosporidium antigen testing performed by enzyme immunoassay. If patient is immunocompromised or has traveled to or is from a developing country, a full ova and parasite exam with microscopic (OPMIC) is recommended. All samples will be held one month in case full ova and parasite testing is requested. Contact the Microbiology Department at [phone]. TEST LIMITATIONS: As with all diagnostic procedures, the results obtained should be used in conjunction with other clinical information available the physician, including confirmation by another method. Negative results can occur in samples containing antigen below lower limits of detection of the CONTINUED ON NEXT PAGE * ML=Testing performed at [facility] DEPARTMENT OF PATHOLOGY, [address] [place] [address] Gene Dyson M.D. Director [facility] # [id number] Patient: SORIN RICHARDS [id number] (Continued) Specimen: [id number] Collected: 02/25/16 Received: 02/25/16 (Continued) Procedure Result Reported Site O P: Giardia/Cryptospor Screen Final (continued) 06/03/16- 1123 assay. One negative specimen does not rule out the possibility of a parasitic infection. To improve detection it is recommended that three specimens be collected on separate days over a period of not more than seven days. The use of colonic washes, aspirates or other diluted sample types has not been established and could affect the performance of the assay. Stool samples contaminated with an oily or particulate base (eg. Barium, mineral oil etc.) could interfere with the test and are not recommended. * ML - MAIN LAB ([facility]) . END OF REPORT * ML=Testing performed at [facility] DEPARTMENT OF PATHOLOGY, [address] [place] [address] Gene Dyson M.D. Director [facility] # [id number] 18 Specimen hemolyzed. Result may not be valid. [facility] Severe Sepsis and Septic Shock Management Bundle Measure requires all lactic acids initially measuring >2.0 mmol/L be repeated. 19 Because ethnic data is not always readily available, this report includes an eGFR for both -Americans and non- Americans. The National Kidney Disease Education Program (NKDEP) does not endorse the use of the MDRD equation for patients that are not between the ages of 18 and 70, are , have extremes of body size, muscle mass, or nutritional status, or are non- or non-. According to the National Kidney Foundation, irrespective of diagnosis, the stage of the disease is based on the level of kidney function: Stage Description GFR(mL/min/1.73 m(2)) 1 Kidney damage with normal or decreased GFR 90 2 Kidney damage with mild decrease in GFR 60-89 3 Moderate decrease in GFR 30-59 4 Severe decrease in GFR 15-29 5 Kidney failure <15 (or dialysis) 20 Acute inflammation: >10.00 21 NON-FASTING 22 RESULTS VERIFIED BY REPEAT ANALYSIS 23 PT IS FASTING 24 Desirable <150 Borderline high 150-199 High 200-499 Very High >500 25 Desirable <200 Borderline high 200-239 High >239 26 Low <40 Desirable: 40-60 High: >60 27 Desirable: <100 mg/dL Near Optimal: 100-129 mg/dL Borderline High: 130-159 mg/dL High: 160-189 mg/dL Very High: >189 mg/dL 28 FASTING 29 FASTING 30 Because ethnic data is not always readily available, this report includes an eGFR for both -Americans and non- Americans. The National Kidney Disease Education Program (NKDEP) does not endorse the use of the MDRD equation for patients that are not between the ages of 18 and 70, are , have extremes of body size, muscle mass, or nutritional status, or are non- or non-. According to the National Kidney Foundation, irrespective of diagnosis, the stage of the disease is based on the level of kidney function: Stage Description GFR(mL/min/1.73 m(2)) 1 Kidney damage with normal or decreased GFR 90 2 Kidney damage with mild decrease in GFR 60-89 3 Moderate decrease in GFR 30-59 4 Severe decrease in GFR 15-29 5 Kidney failure <15 (or dialysis) 31 FASTING 32 PT IS FASTING 33 Unable to report test result due to hemolysis. 34 Unable to report test result due to hemolysis. 35 Because ethnic data is not always readily available, this report includes an eGFR for both -Americans and non- Americans. The National Kid[employer] Disease Education Program (NKDEP) does not endorse the use of the MDRD equation for patients that are not between the ages of 18 and 70, are , have extremes of body size, muscle mass, or nutritional status, or are non- or non-. According to the [employer], irrespective of diagnosis, the stage of the disease is based on the level of kidney function: Stage Description GFR(mL/min/1.73 m(2)) 1 Kidney damage with normal or decreased GFR 90 2 Kidney damage with mild decrease in GFR 60-89 3 Moderate decrease in GFR 30-59 4 Severe decrease in GFR 15-29 5 Kidney failure <15 (or dialysis) 36 Desirable <150 Borderline high 150-199 High 200-499 Very High >500 37 Desirable <200 Borderline high 200-239 High >239 38 Low <40 Desirable: 40-60 High: >60 39 Desirable <100 Near Optimal 100-129 Borderline high 130-159 High 160-189 Very High >189 40 CHOLESTEROL INTERPRETATION: Desirable: Less than 200 MG/DL Borderline-High Risk: 200-239 MG/DL High-Risk: 240 MG/DL and over 41 HDL INTERPRETATION: Undesirable: High Risk: Less than 40 MG/DL Desirable: Low Risk: Greater than 60 MG/DL 42 LDL INTERPRETATION: Low Risk Optimal Level: LDL Less than 100 MG/DL Near or Above Optimal: LDL 100-129 MG/DL Borderline High Risk: LDL 130-159 MG/DL High Risk: LDL 160-189 MG/DL Very High Risk: LDL Greater than 189 MG/DL 43 CHOLESTEROL INTERPRETATION: Desirable: Less than 200 MG/DL Borderline-High Risk: 200-239 MG/DL High-Risk: 240 MG/DL and over 44 HDL INTERPRETATION: Undesirable: High Risk: Less than 40 MG/DL Desirable: Low Risk: Greater than 60 MG/DL 45 LDL INTERPRETATION: Low Risk Optimal Level: LDL Less than 100 MG/DL Near or Above Optimal: LDL 100-129 MG/DL Borderline High Risk: LDL 130-159 MG/DL High Risk: LDL 160-189 MG/DL Very High Risk: LDL Greater than 189 MG/DL 46 Anion gap measurement may be of limited value in the presence of any alkalosis, especially in a combined acid base disorder. . 47 A metabolite of Naproxen, O-desmethylnaproxen, has been shown to interfere with the Jendrassik-Macario method for measuring total bilirubin. Samples from patients who have taken Naproxen have shown spurious elevation in total bilirubin levels. 48 Because ethnic data is not always readily available, this report includes an eGFR for both -Americans and non- Americans. The National Kidney Disease Education Program (NKDEP) does not endorse the use of the MDRD equation for patients that are not between the ages of 18 and 70, are , have extremes of body size, muscle mass, or nutritional status, or are non- or non-. According to the National Kidney Foundation, irrespective of diagnosis, the stage of the disease is based on the level of kidney function: Stage Description GFR(mL/min/1.73 m(2)) 1 Kidney damage with normal or decreased GFR 90 2 Kidney damage with mild decrease in GFR 60-89 3 Moderate decrease in GFR 30-59 4 Severe decrease in GFR 15-29 5 Kidney failure <15 (or dialysis) 49 RESULT RAUL'D 50 RESULT RAUL'D 51 Anion gap measurement may be of limited value in the presence of any alkalosis, especially in a combined acid base disorder. . 52 Because ethnic data is not always readily available, this report includes an eGFR for both -Americans and non- Americans. The National Kidney Disease Education Program (NKDEP) does not endorse the use of the MDRD equation for patients that are not between the ages of 18 and 70, are , have extremes of body size, muscle mass, or nutritional status, or are non- or non-. According to the National Kidney Foundation, irrespective of diagnosis, the stage of the disease is based on the level of kidney function: Stage Description GFR(mL/min/1.73 m(2)) 1 Kidney damage with normal or decreased GFR 90 2 Kidney damage with mild decrease in GFR 60-89 3 Moderate decrease in GFR 30-59 4 Severe decrease in GFR 15-29 5 Kidney failure <15 (or dialysis) 53 A metabolite of Naproxen, O-desmethylnaproxen, has been shown to interfere with the Jendrassik-Macario method for measuring total bilirubin. Samples from patients who have taken Naproxen have shown spurious elevation in total bilirubin levels. 54 Please note updated reference range, effective 04/14/10 55 New Reference Range and Interpretation effective 06/27/2002 TnI (ng/ml) INTERPRETATION Less Than 0.06 ng/mL NOT SUPPORTIVE OF DIAGNOSIS OF SC 0.06 - 0.50 ng/ml INDETERMINATE: SUGGEST SERIAL STUDIES IF CLINICALLY INDICATED. Greater than 0.5 ng/mL CONSISTENT WITH DIAGNOSIS OF SC . 56 NO FUNGAL ELEMENTS NOTED 57 Anion gap measurement may be of limited value in the presence of any alkalosis, especially in a combined acid base disorder. . 58 A metabolite of Naproxen, O-desmethylnaproxen, has been shown to interfere with the Jendrassik-[place] method for measuring total bilirubin. Samples from patients who have taken Naproxen have shown spurious elevation in total bilirubin levels. 59 Because ethnic data is not always readily available, this report includes an eGFR for both -Americans and non- Americans. The National Kidney Disease Education Program (NKDEP) does not endorse the use of the MDRD equation for patients that are not between the ages of 18 and 70, are , have extremes of body size, muscle mass, or nutritional status, or are non- or non-. According to the National Kidney Foundation, irrespective of diagnosis, the stage of the disease is based on the level of kidney function: Stage Description GFR(mL/min/1.73 m(2)) 1 Kidney damage with normal or decreased GFR 90 2 Kidney damage with mild decrease in GFR 60-89 3 Moderate decrease in GFR 30-59 4 Severe decrease in GFR 15-29 5 Kidney failure <15 (or dialysis) 60 CHOLESTEROL INTERPRETATION: Desirable: Less than 200 MG/DL Borderline-High Risk: 200-239 MG/DL High-Risk: 240 MG/DL and over 61 HDL INTERPRETATION: Undesirable: High Risk: Less than 40 MG/DL Desirable: Low Risk: Greater than 60 MG/DL 62 LDL INTERPRETATION: Low Risk Optimal Level: LDL Less than 100 MG/DL Near or Above Optimal: LDL 100-129 MG/DL Borderline High Risk: LDL 130-159 MG/DL High Risk: LDL 160-189 MG/DL Very High Risk: LDL Greater than 189 MG/DL 63 Lymphopenia % 64 Anion gap measurement may be of limited value in the presence of any alkalosis, especially in a combined acid base disorder. . 65 Note change in reference range as of 05/14/08. The change was based on recommendations from the [place] [employer]. 66 Please note change in reference range effective 08 . 67 A metabolite of Naproxen, O-desmethylnaproxen, has been shown to interfere with the Jendrassik-[place] method for measuring total bilirubin. Samples from patients who have taken Naproxen have shown spurious elevation in total bilirubin levels. 68 Because ethnic data is not always readily available, this report includes an eGFR for both -Americans and non- Americans. The National Kidney Disease Education Program (NKDEP) does not endorse the use of the MDRD equation for patients that are not between the ages of 18 and 70, are , have extremes of body size, muscle mass, or nutritional status, or are non- or non-. According to the National Kidney Foundation, irrespective of diagnosis, the stage of the disease is based on the level of kidney function: Stage Description GFR(mL/min/1.73 m(2)) 1 Kidney damage with normal or decreased GFR 90 2 Kidney damage with mild decrease in GFR 60-89 3 Moderate decrease in GFR 30-59 4 Severe decrease in GFR 15-29 5 Kidney failure <15 (or dialysis) 69 FINAL: NO GROWTH DAY 2 (<1,000 CFU/mL) 70 If is still suspected, please repeat test after 48 to 72 hours. . 71 Anion gap measurement may be of limited value in the presence of any alkalosis, especially in a combined acid base disorder. . 72 Note change in reference range as of 05/14/08. The change was based on recommendations from the [place] [employer]. 73 Please note change in reference range effective 08 . 74 A metabolite of Naproxen, O-desmethylnaproxen, has been shown to interfere with the Jendrassik-Macario method for measuring total bilirubin. Samples from patients who have taken Naproxen have shown spurious elevation in total bilirubin levels. 75 Because ethnic data is not always readily available, this report includes an eGFR for both -Americans and non- Americans. The National Kidney Disease Education Program (NKDEP) does not endorse the use of the MDRD equation for patients that are not between the ages of 18 and 70, are , have extremes of body size, muscle mass, or nutritional status, or are non- or non-. According to the National Kidney Foundation, irrespective of diagnosis, the stage of the disease is based on the level of kidney function: Stage Description GFR(mL/min/1.73 m(2)) 1 Kidney damage with normal or decreased GFR 90 2 Kidney damage with mild decrease in GFR 60-89 3 Moderate decrease in GFR 30-59 4 Severe decrease in GFR 15-29 5 Kidney failure <15 (or dialysis) 76 Lymphopenia % 77 . A negative result does not preclude the presence of a C.trachomatis or N.gonorrhoeae infection because results are dependent on adequate specimen collection, absence of inhibitors, and sufficient rRNA to be detected. Test results may be affected by improper specimen collection, improper specimen storage, technical error, or specimen mixup. . 78 . A negative result does not preclude the presence of a C.trachomatis or N.gonorrhoeae infection because results are dependent on adequate specimen collection, absence of inhibitors, and sufficient rRNA to be detected. Test results may be affected by improper specimen collection, improper specimen storage, technical error, or specimen mixup. . 79 ABSENT FEW (LESS THAN 1/HPF) ABSENT 80 invalid 81 FASTING; 2 SST 82 Cholesterol Risk Levels (NIH) Recommended: under 200 mg/dl Borderline : 200-239 mg/dl High Risk : Above 240 mg/dl 83 The National Cholesterol Education Program recommends the following ranges for LDL Cholesterol: Optimal under 100 mg/dl Near or above Optimal 100 - 129 mg/dl Borderline High 130 - 159 mg/dl High 160 - 189 mg/dl Very High above 190 mg/dl 84 Triglyceride Risk Levels: Normal : <150 mg/dl Borderline : 150-199 mg/dl High : 200-499 mg/dl Very High : >500 mg/dl 85 LDL/HDL Risk Ratio Levels MALE FEMALE 1/2 X Average 1.00 1.47 Average 3.55 3.22 2 X Average 6.25 5.03 3 X Average 7.99 6.14 86 CHOL/HDL Risk Ratio Levels MALE FEMALE 1/2 X Average 3.4 3.3 Average 5.0 4.4 2 X Average 9.5 7.0 3 X Average 24.0 11.0 87 FASTING 88 Classification: Desirable . 89 Classification: Low . 90 CALCULATED LDL APPROXIMATES THE VALUE OF A DIRECT LDL MEASUREMENT. Classification: Near or above optimal . 91 Classification: High . 92 CALCULATED LDL APPROXIMATES THE VALUE OF A DIRECT LDL MEASUREMENT. Classification: Very High . 93 Anion gap measurement may be of limited value in the presence of any alkalosis, especially in a combined acid base disorder. . 94 PLEASE NOTE NEW REFERENCE RANGES. 95 CREAM AND SUGAR WITH COFFEE. NON-FASTING 96 Follicular Phase: 4.0-13.0 mIU/mL Ovulatory Peak: 5.0-22.0 mIU/mL Luteal Phase: 2.0-13.0 mIU/mL Post-Menopausal: 20.0-138.0mIU/mL MALE: 1.0-8.0 mIU/mL . 97 Follicular Phase: 1.0-18.0 mIU/ml Ovulatory Peak: 24.0-105.0mIU/ml Luteal Phase: 0.4-20.0 mIU/ml Post-Menopausal: 15.0-62.0 mIU/ml MALES: 2.0-12.0 mIU/ml . Procedures Date Code Description Status 12/29/2017 [id number] Injection Subcutaneous Or Intramuscular Completed 01/31/2017 [id number] Brief Emotional/Behav Assessment W/ Scoring Doc Per Completed Standard Inst 11/30/2016 [id number] Mammogram Completed 10/29/2015 [id number] Mammogram Completed 12/25/2014 25284 Pulse Oximetry Completed 10/20/2014 [id number] Mammogram Completed 04/21/2011 [id number] Colonoscopy Completed 02/23/2011 [id number] Mammogram Completed 03/31/2009 [id number] Mammogram Completed 01/07/2007 [id number] Mammogram Completed Encounters Type Date Location Provider Dx Diagnosis Office Visit 07/25/2018 Main Office Katarina Isaacs3.9 Hypothyroidism, 7:50p Farrah.Marta unspecified R00.2 Palpitations Z00.00 Encntr for general adult medical exam w/o abnormal findings E55.9 Vitamin D deficiency, unspecified Office Visit 05/02/2018 2:45p Main Office Love S00.03xA Contusion of Jennifer, SCIENTIFIC ILLUSTRATOR scalp, initial encounter S00.33xA Contusion of nose, initial encounter R23.3 Spontaneous ecchymoses R53.81 Other malaise Office Visit 03/28/2018 3:15p Main Office Lucila Hart Z11.1 Encounter for Josefa Hastings screening for respiratory tuberculosis Office Visit 11/05/2017 6:30p Main Office Bobbi Moser E03.9 Hypothyroidism , Mon, C D REACTOR OPERATOR unspecified Office Visit 08/23/2017 8:00a Main Office Cecile Campbell F43.22 Adjustment Maicol, C D REACTOR OPERATOR disorder with anxiety Office Visit 06/08/2017 3:30p [facility] Office Cecile Campbell F43.22 Adjustment Maicol, C D REACTOR OPERATOR disorder with anxiety R00.2 Palpitations Office Visit 06/05/2017 7:00p Main Office oLve F43.22 Adjustment Jennifer, SCIENTIFIC ILLUSTRATOR disorder with anxiety R00.2 Palpitations Office Visit 04/19/2017 10:00a [facility] Lucila Hart R10.31 Right lower Josefa Hastings quadrant pain K59.09 Other constipation 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 w/o bleeding Office Visit 02/02/2017 10:30a Main Office Lucila Hart Z11.1 Encounter for Josefa Hastings screening for respiratory tuberculosis Office Visit 01/31/2017 9:00a Main Office Lucila Hart Z00.00 Encntr for general Josefa Hastings adult medical exam w/o abnormal findings E78.4 Other hyperlipidemia F17.210 Nicotine dependence, cigarettes, uncomplicated E03.9 Hypothyroidism, unspecified A04.7 Enterocolitis due to Clostridium difficile M54.2 Cervicalgia Z11.1 Encounter for screening for respiratory tuberculosis Z13.9 Encounter for screening, unspecified Z71.6 Tobacco abuse counseling Office Visit 07/17/2016 12:00p Main Office Lucila Hart F43.22 Adjustment Josefa Hastings disorder with anxiety R00.2 Palpitations R10.30 Lower abdominal pain, unspecified Office Visit 03/17/2016 9:30a Main Office Yudi Townsend R10.30 Lower abdominal SCIENTIFIC ILLUSTRATOR pain, unspecified Office Visit 01/28/2016 2:30p Main Office Lucila Hart Z11.1 Encounter for Josefa Hastings screening for respiratory tuberculosis Office Visit 2016 2:00p Main Office Lucila Hart Z11.1 Encounter for Josefa Hastings screening for respiratory tuberculosis Z00.01 Encounter for general adult medical exam w abnormal findings G47.09 Other insomnia E78.4 Other hyperlipidemia R00.2 Palpitations F43.22 Adjustment disorder with anxiety E55.9 Vitamin D deficiency, unspecified Office Visit 01/10/2016 4:40p Main Office Lucila Hart F43.22 Adjustment Josefa Hastings disorder with anxiety R00.2 Palpitations F17.210 Nicotine dependence, cigarettes, uncomplicated Office Visit 12/02/2015 3:20p [facility] Diane Isaacs0.2 Palpitations Josefa F41.9 Anxiety disorder, unspecified Office Visit 04/07/2015 2:45p [facility] Love 300.00 Anxiety State Jennifer, SCIENTIFIC ILLUSTRATOR Unspec 780.52 Insomnia Unspecified Office Visit 03/17/2015 8:00a Main Office Joselyn Peterson, 562.11 Diverticulitis Colon C D REACTOR OPERATOR W/O Hemorrhage Office Visit 01/27/2015 3:30p Main Office Ricky Roa V74.1 Screening Examination M.D. Pulmonary Tuberculosis Office Visit 01/21/2015 2:20p Main Office Ricky Roa V70.0 Examination General M.D. Medical Routine AT Health Care Facility 244.9 Hypothyroidism Other Unspec 272.4 Hyperlipidemia Other Unspec Office Visit 12/25/2014 2:30p Main Office Yudi Townsend, 461.0 Sinusitis Acute SCIENTIFIC ILLUSTRATOR Maxillary Office Visit 08/06/2014 9:20a Main Office Ricky Roa M.D. 244.9 Hypothyroidism Other Unspec 272.4 Hyperlipidemia Other Unspec 780.52 Insomnia Unspecified Office Visit 01/21/2014 4:00p Main Office Marcos Pate V74.1 Screening Josefa Looney Examination Pulmonary Tuberculosis Office Visit 01/19/2014 2:00p [facility] Marcos Pate V70.0 Examination General Josefa Looney Medical Routine AT Health Care Facility 272.4 Hyperlipidemia Other Unspec 244.9 Hypothyroidism Other Unspec V76.51 Screening For Malignant Neoplasms Colon 305.1 Tobacco Use Disorder 719.47 Pain Joint Ankle & Foot V74.1 Screening Examination Pulmonary Tuberculosis Office Visit 11/24/2013 3:00p [facility] Marcos Pate 300.00 Anxiety State Josefa Looney Unspec 780.52 Insomnia Unspecified 708.9 Urticaria Unspec Office Visit 11/05/2013 2:00p [facility] Marcos Pate 789.00 Pain Abdominal Office Josefa Looney Unspec Site Office Visit 09/29/2013 6:15p Main Office Joselyn Peterson, 562.11 Diverticulitis Colon C D REACTOR OPERATOR W/O Hemorrhage Office Visit 01/17/2013 10:00a Main Office Marcos Pate V74.1 Screening Josefa Looney Examination Pulmonary Tuberculosis Office Visit 01/15/2013 8:10a Main Office Marcos Pate V70.0 Examination General Josefa Looney Medical Routine AT Health Care Facility V77.91 Screening For Lipoid Disorders 244.9 Hypothyroidism Other Unspec 272.4 Hyperlipidemia Other Unspec 305.1 Tobacco Use Disorder v74.1 Screening Examination Pulmonary Tuberculosis Office Visit 10/11/2012 [facility] Taylor Padilla, 562.11 Diverticulitis Colon 2:45p Office Afnp-C W/O Hemorrhage Office Visit 01/17/2012 Main Office Harriett Lozano V74.1 Screening 6:30p Abdoulaye Ibanez M.D. Pulmonary Tuberculosis Office Visit 01/15/2012 Main Office Harriett Lozano 244.9 Hypothyroidism Other 5:00p [place], Unspec Farrah.DJelena 780.52 Insomnia Unspecified 305.1 Tobacco Use Disorder 789.03 Pain Abdominal Right Lower Quadrant V06.5 Tetanus Diphtheria (DT) V74.1 Screening Examination Pulmonary Tuberculosis V70.5 Examination Health Of Defined Subpopulations Office Visit 12/25/2011 5:00p Main Office Lucila Hart 461.0 Sinusitis Acute Josefa Hastings Maxillary Office Visit 10/12/2011 2:30p Main Office Harriett Lozano 244.9 Hypothyroidism Other Josefa Ibanez Unspec 272.4 Hyperlipidemia Other Unspec 780.52 Insomnia Unspecified 305.1 Tobacco Use Disorder Office Visit 10/06/2011 1:00p [facility] Office Harriett Lozano 789.03 Pain Abdominal Josefa Ibanez Right Lower Quadrant 272.4 Hyperlipidemia Other Unspec 244.9 Hypothyroidism Other Unspec Office Visit 09/20/2011 9:45a Main Office Taylor Padilla, 465.8 Upper Respiratory Afnp-C Infections Acute Other Multiple Sites Office Visit 04/04/2011 11:30a Main Office Lucila Hart 789.01 Pain Abdominal Right Josefa Hastings Upper Quadrant Office Visit 12/30/2010 4:15p Main Office Love mosquera V74.1 Screening Josefa Kirkpatrick Examination Pulmonary Tuberculosis Office Visit 12/28/2010 3:30p Main Office Lilliana V70.5 Examination Health [facility], Afnp-C Of Defined Subpopulations 703.8 Nail Diseases Other Spec V76.10 Screening For Malignant Neoplasm Breast V74.1 Screening Examination Pulmonary Tuberculosis Office Visit 12/21/2010 1:00p Main Office Bruce Hicks Pharyngitis Derek Patiño M.D. Office Visit 09/26/2010 3:00p Main Office Love mosquera 272.4 Hyperlipidemia Maria A Kirkpatrick M.D. Unspec 244.9 Hypothyroidism Other Unspec 305.1 Tobacco Use Disorder Office Visit 06/28/2010 Main Office Amparo Molina 466.0 Bronchitis Acute 12:30p Josefa Bangura Office Visit 01/31/2010 Main Office Love mosquera 562.11 Diverticulitis Colon 2:20p Josefa Kirkpatrick W/O Hemorrhage Office Visit 12/22/2009 Main Office Bruce Thrasher 466.0 Bronchitis Acute 6:20p Josefa Patiño Office Visit 10/07/2009 [facility] Taylor Padilla 465.8 Upper Respiratory 3:30p Office Afnp-C Infections Acute Other Multiple Sites Office Visit 03/29/2009 [facility] Marcos Pate 719.46 Pain Joint Lower Leg 3:20p Office Josefa Looney Office Visit 02/17/2009 Main Office Taylor Padilla V70.5 Examination Health 10:30a Afnp-C Of Defined Subpopulations 244.9 Hypothyroidism Other Unspec 272.4 Hyperlipidemia Other Unspec 272.1 Hypertriglyceridemia Pure Office Visit 01/22/2009 11:30a [facility] Office Taylor Padilla 461.9 Sinusitis Acute Afnp-C Unspec Office Visit 07/29/2008 11:10a [facility] Office Marcos Pate 461.0 Sinusitis Acute Josefa Looney Maxillary 477.9 Rhinitis Allergic Cause Unspec Office Visit 03/10/2008 9:40a [facility] Office Love mosquera 719.46 Pain Joint Josefa Kirkpatrick Lower Leg 490 Bronchitis Acute Or Chronic Not Spec 461.0 Sinusitis Acute Maxillary Office Visit 03/04/2008 1:40p Main Office Marcos Pate 465.9 URI Upper Josefa Looney Respiratory Infections Acute Unspec Sites Office Visit 02/15/2008 12:40p Main Office Issa Tavarez, 726.64 Tendinitis Ragini Rivero 726.90 Enthesopathy Unspec Site Office Visit 07/24/2007 10:30a Main Office Love mosquera 272.4 Hyperlipidemia Maria A Kirkpatrick M.D. Unspec 307.41 Sleep Disorder Transient Initiating Or Maintaining Sleep 695.3 Rosacea Office Visit 04/12/2007 1:00p [facility] Love mosquera V70.0 Examination Josefa Kirkpatrick General Medical Routine AT Health Care Facility 995.3 Allergy Unspec 244.9 Hypothyroidism Other Unspec Office Visit 03/25/2007 Main Office Yudi Townsend, 924.9 Contusion Unspec 1:30p SCIENTIFIC ILLUSTRATOR Site Office Visit 06/26/2006 [facility] Lilliana 465.9 URI Upper 1:30p Office [place], Respiratory Afnp-C Infections Acute Unspec Sites Office Visit 03/30/2006 [facility] Love mosquera 486 Pneumonia Organism 10:00a Office Josefa Kirkpatrick Unspec Office Visit 03/22/2006 Main Office Love mosquera 272.4 Hyperlipidemia Other 5:00p Josefa Kirkpatrick Unspec 244.9 Hypothyroidism Other Unspec Office Visit 01/12/2006 9:30a [facility] Taylor Padilla, 786.2 Cough Afnp-C Office Visit 10/05/2005 2:00p Main Office Love mosquera 847.0 Sprains & Josefa Kirkpatrick Strains Neck 918.9 Injury Superficial Eye Other & Unspec Office Visit 08/15/2005 9:10a Main Office Love mosquera 272.4 Hyperlipidemia Maria A Kirkpatrick M.D. Unspec 346.90 Migraine Unspec W/O Intractable Office Visit 12/12/2004 3:20p Main Office Issa Tavarez, 244.9 Hypothyroidism Other JesseDJelena Unspec 272.4 Hyperlipidemia Other Unspec 784.0 Headache V70.0 Examination General Medical Routine AT Health Care Facility Office Visit 11/02/2004 Main Office Yudi Townsend, 487.1 Influenza W/ Other 9:30a SCIENTIFIC ILLUSTRATOR Respiratory Manifestations Office Visit 08/08/2004 [facility] Love mosquera 847.0 Sprains & Strains 4:00p Office Josefa Kirkpatrick Neck Office Visit 08/18/2003 [facility] Yudi Townsend, 465.9 URI Upper 9:15a Office SCIENTIFIC ILLUSTRATOR Respiratory Infections Acute Unspec Sites Office Visit 11/04/2002 Main Office Gerber Vega 244.9 Hypothyroidism Other 8:10a Josefa Hernandez Unspec 627.2 Menopausal Or Female Climacteric State, Symptomatic Office Visit 10/09/2002 6:10p Main Office Gerber Hernandez, 461.1 Sinusitis Acute M.Marta Frontal Plan of Treatment Future Appointment(s):07/03/2019 5:00 pm - Lucila Hastings M.D. at Main [id number]/13/2019 - Tasha Gaona, PAR19.7 Diarrhea, unspecifiedComments: Continue to push fluids and maintain your hydration status and calorie intake. May take imodium. Youshould continue to see improvement in the regulation of your stools. If you notice worsening of yoursymptoms including blood in the stools, watery numerous stools throughout the day please let us know. Continue to take probiotic through your Kefir, can take Probiotic supplement to increase good bacteria as well.AllComments:PCMHMedication Management Patient Understands medications he's taking? Yes Are there Barriers to Adherence? No Has the patient been asked about herbal supplements and therapies, and OTC meds ? Yes Care Plan1. Patient has been queried about patient's goals/ preferences and functional/lifestyle goals at relevant visits. Yes If relevant, describe: N/A2. Treatment goals as explained to the patient: above3. Are there barriers to meeting treatment goals? No If Yes, please describe:4. Self-Management goals as described to the patient: Yes As always, we strongly encourage a healthy diet and making physical activity a part of your every day life. If you have questions about how or where to start, please contact the office.Follow up:Return as needed or for physical exam with Dr. Hastings in Fall 2018
--- OUTSIDE RECORDS SUMMARY | 2019-04-06 14:10 | XMS REPORT | Continuity of Care Document ---
:1955 External Reference #:[id number] Author Name Eileen Augustin Care Team Providers Name Role Phone Lucila Hastings MD Primary Care Physician Unavailable Payers Date Identification Numbers Payment Provider Subscriber Policy Number: [id number] [employer] Rosita Mahmood PayID: [id number] [address] [address] [place] [address] Problems Active Problems Provider Date Localized, primary osteoarthritis Gurvinder Masters MD Onset: 02/21/2019 Closed fracture of medial malleolus Gurvinder Masters MD Onset: 02/21/2019 Family History Date Family Member(s) Observation Comments General diabetes, heart trouble, and cancer in immediate family Father Peripheral Vascular Disease (PVD) Father due to Cancer () - at age 77 Mother Aortic Aneurysm Mother due to Cancer () - in her 80's Siblings None Social History Type Date Description Comments Sex Unknown Marital Status Single Lives With Alone Occupation Nurse Director at [employer] Tobacco Use Start: Unknown Light tobacco smoker (10 or fewer cigarettes/day) ETOH Use Drinks Alcoholic Beverages Rarely Tobacco Use Start: Unknown Patient is a current smoker, smokes every day Tobacco Use Start: Unknown Light tobacco smoker (10 or fewer cigarettes/day) Smoking Status Reviewed: 03/11/19 Light tobacco smoker (10 or fewer cigarettes/day) Exercise Type/Frequency Exercises regularly 3-5 per wk Allergies, Adverse Reactions, Alerts Active Allergies Reaction Severity Comments Date Ceclor 01/11/2016 Codeine 01/11/2016 Lipitor leg cramps 01/11/2016 Flagyl fatigue 01/11/2016 Metoprolol lightheadness and fatigue 01/11/2016 Medications Active Medications SIG Qnty Indications Ordering Provider Date Levothyroxine Sodium 1 by mouth every Unknown 88mcg day Tablets Diazepam 1 tab twice a day Unknown 2mg Tablets prn for anxiety Metoprolol Tartrate 1/2- 1 by mouth Qutamagdalena S. 25mg prn s/s (pt not Josefa Younger Tablets taking on daily basis) History Medications Aspir-Low 1 by mouth every 30tabs Nicolle SJelena 02/04/2016 - 81mg Tablets DR christiano Younger M.D. 02/20/2019 Lorazepam 1 by mouth twice Unknown - 0.5mg Tablets a day as needed 02/20/2019 for anxiety (On Hold) Garlison/Zinc/Echinaea 1 cap po daily Unknown - /Vitamin C 02/20/2019 10mg Capsules Lactobacillus 1 by mouth twice Unknown - Plantarum Live Culture a day 02/20/2019 Capsules Saccharomyces Boular 2 cap po daily as Unknown - Live Culture needed 02/20/2019 Align 1 by mouth every Unknown - 4mg Capsules day 05/07/2016 Echinacea prn Unknown - 80mg Capsules 02/20/2019 Lactobacillus 1 cap daily Unknown - Rhamnosus Live Culture 02/20/2019 Organic Kefir Liquid Milk 12 Unknown - Live Cultures 02/20/2019 1/2- 1 cup per day Vital Signs Date Vital Result Comment 03/11/2019 3:05pm Height 66 inches 5'6" Weight 140.00 lb BP Systolic 118 mmHg BP Diastolic 66 mmHg Respiratory Rate 18 /min Pain Level 8 BMI (Body Mass Index) 22.6 kg/m2 02/21/2019 8:15am Height 66 inches 5'6" Weight 140.00 lb Heart Rate 60 /min BP Systolic 116 mmHg BP Diastolic 82 mmHg Respiratory Rate 18 /min Body Temperature 97.5 F Pain Level 7 BMI (Body Mass Index) 22.6 kg/m2 05/08/2016 4:05pm Height 65.5 inches 5'5.50" Weight 137.25 lb with shoes Heart Rate 56 /min BP Systolic Sitting 120 mmHg LA reg cuff BP Diastolic Sitting 64 mmHg LA reg cuff Respiratory Rate 16 /min BMI (Body Mass Index) 22.5 kg/m2 Ejection Fraction 55% date 03/09/16 ECHO 04/14/2016 9:31am Height 65.5 inches 5'5.50" Weight 133.00 lb Heart Rate 56 /min BP Systolic 110 mmHg BP Diastolic 66 mmHg Pain Level 5 BMI (Body Mass Index) 21.8 kg/m2 01/11/2016 2:02pm Height 65.5 inches 5'5.50" Weight 141.25 lb with shoes/coat Heart Rate 54 /min BP Systolic Sitting 98 mmHg LA, regular BP Diastolic Sitting 56 mmHg LA, regular BMI (Body Mass Index) 23.1 kg/m2 Results Test Date Facility Test Result H/L Range Note Laboratory test 12/26/2017 [facility] Cytology SEE RESULT [address] [place] [address] [phone] 1 SEE RESULT BELOW Name: SURESHMARGIEJúniorROSITA A : [address]: Myron Greene MD Acct: [id number] Unit: [id number] AGE: 62 Location: [facility] Re12/26/17 SEX: F Status: REG REF SPEC: [id number] ORLIN: 12/26/[address] [facility] [address]: Myron Greene MD REQ: [id number] RECD: 12/27/17 STATUS: JD LEVY DR: George Cox MD _ ORDERED: TP IMAGE ANAL, HPV/Thin Prep COMMENTS: [id number] Negative for Intraepithelial lesion or Malignancy A. Vaginal Specimen Adequacy: Satisfactory of evaluation Patient Information: HPV: High risk HPV RNA testing regardless of pap results. Actual Specimen Date: 12/26/17 LMP If Unknown: 1997 Date of Last Specimen: 05/20/13 Date Time Test Result Flag (u) Normal Range 12/26/17 1616 @ HPV RNA Negative Negative @ @ The high-risk HPV types detected by the assay include: 16, @ 18, 31, 33, 35, 39, 45, 51, 52, 56, 58, 59, 66, and 68. Signed (signature on file) SEEMA Howell (ASCP) 12/28 2487 This Pap test was evaluated with the assistance of the ThinPrep Test Imaging System. Due to cytologic findings at the nonprofit manager microscope, comprehensive manual rescreening by a Tax Consultant may be required. The Pap Smear is a screening test designed to aid in the detection of premalignant and malignant conditions of the uterine cervix. It is not a diagnostic procedure and should not be used as the sole means of detecting cervical cancer. Both false- positive and false- negative reports do occur. Depending on your risk status, a Pap smear should be obtained and evaluated every 1-3 years. END OF REPORT DEPARTMENT OF PATHOLOGY, [address] [place] [address] Gene Dyson M.D. Director [facility] # [id number] Procedures Date Code Description Status 03/09/2016 89290 ECHO Stress Test Incl Perf Contiuous ekg Monitoring W/Phys Completed Superv 02/07/2016 89733 ECHO Transthoracic, Real-Time 2D With Doppler And Color Completed Flow 02/04/2016 35545 Holter Monitor Review (24 hr)dr review & interp only Completed 02/02/2016 05234 ECG Monitor/Recording W/Visual Superimposition Scanning Completed 01/11/2016 82942 EKG Tracing & Interpretation Completed 12/17/2015 45303 Holter Monitor Review (24 hr)dr review & interp only Completed 12/15/2015 11537 ECG Monitor/Recording W/Visual Superimposition Scanning Completed Encounters Type Date Location Provider Dx Diagnosis Office Visit 05/08/2016 Missy Vega R00.0 Tachycardia, 4:20p Josefa Younger unspecified I49.3 Ventricular premature depolarization R00.2 Palpitations I49.1 Atrial premature depolarization I48.0 Paroxysmal atrial fibrillation Office Visit 04/14/2016 9:20a [facility]opedic Ulices Betancourt M70.61 [facility] bursitis, right C.M.A. hip M70.62 Trochanteric bursitis, left hip Office 01/11/2016 Missy Valverde SJelena R94.31 Abnormal Visit 2:30p Cardiology Josefa Younger electrocardiogram [ECG] [EKG] I49.3 Ventricular premature depolarization I49.1 Atrial premature depolarization F17.210 Nicotine dependence, cigarettes, uncomplicated Plan of Treatment 03/11/2019 - Sheridan Adler, MDM25.561 Pain in right kneeNew Xrays:MRI Knee Right W/O, Ordered: 03/11/19Follow up:Follow up: after MRIM17.0 Bilateral primary osteoarthritis of knee
[2019-04-06 14:56] VITALS: BP 110/50
--- NOTE | 2019-04-06 15:42 | UC ---
Hip/Pelvis Pain - HPI Summary HPI Summary: MISSED A STEP LAST NIGHT AND FELL STRAIGHT ONTO HER TAILBONE ONTO CONCRETE STEPS WITH ONLY A THIN LAYER OF CARPETING. NO HEAD INJURY OR LOC. IS CONCERNED ABOUT HER TAILBONE AND LEFT HIP SHE HAS SOME DISCOMFORT IN THESE AREAS. IS ABLE TO AMBULATE WITHOUT DIFFICULTY. - History Of Current Complaint Chief Complaint: UCGeneralIllness Stated Complaint: FALL/BACK/TAILBONE/HIP Time Seen by Provider: 04/06/19 15:14 Hx Obtained From: Patient Hx Last Menstrual Period: menopuasal Onset/Duration: Sudden Onset, Lasting Hours, Still Present Timing: Constant Severity Initially: Moderate Severity Currently: Moderate Pain Intensity: 3 Pain Scale Used: 0-10 Numeric Aggravating Factor(s): Nothing Alleviating Factor(s): Nothing Associated Signs And Symptoms: Positive: Negative - Allergies/Home Medications Allergies/Adverse Reactions: Allergies Allergy/AdvReac Type Severity Reaction Status Date / Time atorvastatin [From Lipitor] AdvReac Intermediate Leg Cramps Verified 04/06/19 14 :56 codeine AdvReac Intermediate Nausea Verified 04/06/19 14:56 metronidazole [From Flagyl] AdvReac GI Upset Verified 04/06/19 14:56 PMH/Surg Hx/FS Hx/Imm Hx Endocrine History: Hypothyroidism Cardiovascular History: Atrial Fibrillation - Surgical History Surgical History: Yes Surgery Procedure, Year, and Place: 1997-partial hysterectomy - Family History Known Family History: Positive: Hypertension - Social History Alcohol Use: Occasionally Substance Use Type: None Smoking Status (MU): Current Every Day Smoker Household Exposure Type: Cigarettes Review of Systems All Other Systems Reviewed And Are Negative: Yes Constitutional: Positive: Negative Skin: Positive: Negative Respiratory: Positive: Negative Cardiovascular: Positive: Negative Gastrointestinal: Positive: Negative Musculoskeletal: Positive: Arthralgia. Negative: Decreased ROM Physical Exam Triage Information Reviewed: Yes Appearance: Well-Appearing, No Pain Distress, Well-Nourished Vital Signs: Initial Vital Signs Temp 98.5 F 04/06/19 14:51 Pulse 57 04/06/19 14:51 Resp 12 04/06/19 14:51 BP 110/50 04/06/19 14:51 Pulse Ox 100 04/06/19 14:51 Vital Signs Reviewed: Yes Eyes: Positive: Conjunctiva Clear ENT: Positive: Hearing grossly normal Neck: Positive: Supple Respiratory: Positive: No respiratory distress, No accessory muscle use Cardiovascular: Positive: Pulses Normal Abdomen Description: Positive: Soft Musculoskeletal: Positive: ROM Intact - FULL ROM AT BACK AND HIPS WITH NO PAIN, No Edema, Other: - NO BONY TENDERNESS OVER LOWER SPINE, SI JOINTS, COCCYX OR HIP Neurological: Positive: Alert Psychological: Positive: Age Appropriate Behavior Skin: Negative: Rashes Hip Injury Course/Dx - Course Course Of Treatment: PATIENT WITH NO BRUISING OR SWELLING. NO BONY OR SOFT TISSUE TENDERNESS OVER THE LOWER BACK/COCCYX/LEFT HIP AREAS. HAS FULL RANGE OF MOTION. PATIENT REPORTS PAIN BUT I AM UNABLE TO ELICIT DISCOMFORT ON PHYSICAL EXAMINATION AND SHE IS UNABLE TO PINPOINT EXACTLY WHERE HER DISCOMFORT IS. NO INDICATION FOR X- RAYS TODAY. ADVISED OTC MEDICATIONS NEEDED FOR DISCOMFORT AND HEAT FOR SYMPTOM RELIEF. SHE WILL FOLLOW-UP IF HER SYMPTOMS WORSEN OR DO NOT IMPROVE EXPECTED. - Differential Dx/Diagnosis Provider Diagnosis: Contusion of left hip region, Contusion of coccyx Discharge - Sign-Out/Discharge Documenting (check all that apply): Patient Departure All imaging exams completed and their final reports reviewed: No Studies - Discharge Plan Condition: Stable Disposition: HOME Patient Education Materials: Hip Contusion (ED) Referrals: Lucila Hastings MD [Primary Care Provider] - If Needed Additional Instructions: NOTHING ON PHYSICAL EXAM THAT SUGGESTS ANY BROKEN BONES. NO INDICATION FOR X- RAY TODAY. BE SURE TO GO THROUGH SLOW RANGE OF MOTION AND STRETCHING EXERCISES DAILY TO PREVENT STIFFENING UP AND MAKING THE DISCOMFORT WORSE. USE HEAT. OTC MEDICATIONS NEEDED FOR DISCOMFORT. SEEK FOLLOW-UP IF YOU'RE NOT IMPROVING EXPECTED OVER THE NEXT WEEK OR SO. - Billing Disposition and Condition Condition: STABLE Disposition: Home
== END 2019-04-06 15:35 | disposition home or self-care (01) ==
LOC: UCEAST 13:59
DX: S70.02XA Contusion of left hip, initial encounter (principal); S30.0XXA Contusion of lower back and pelvis, initial encounter; W10.9XXA Fall (on) (from) unspecified stairs and steps, initial encounter; Y92.9 Unspecified place or not applicable; I48.91 Unspecified atrial fibrillation; E03.9 Hypothyroidism, unspecified; F17.220 Nicotine dependence, chewing tobacco, uncomplicated; Z88.5 Allergy status to narcotic agent
CPT/HCPCS: 99211; G0463